=== PATIENT | female | born 1940 | race Caucasian/White ===

== ENCOUNTER → 2016-07-30 | Outpatient (CLI) | payer BC ==
[~2016-07-30] MED LIST: ATOR10TA88 PO; CLON0.5T3 PO; FEXO1TAB58 PO; IBUP-103 PO; LEVO50TA6 PO; MIRT15TA3 PO; NTRGSL/4 PO; OXYC-609 PO; PANC1200 PO; POTA10CA28 PO
--- NOTE | 2016-07-30 12:53 | DIAGNOSTIC IMAGING REPORT ---
Brain MRA HISTORY: Mental status change I63.9 Ischemic [id number] TECHNIQUE: 3-D [id number] MRA of the brain was performed without contrast. COMPARISON STUDY: None. FINDINGS: Visualized intracranial internal carotid arteries, distal vertebral arteries, and basilar artery are widely patent. 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 IMPRESSION: No significant stenosis, occlusion, or aneurysm within the [place]. Electronically signed by: Jose L Smallwood M.D. 07/30/2016 12:52 PM Dictated Date/Time: 07/30/2016 12:48 PM
--- NOTE | 2016-07-30 16:11 | ECHOCARDIOGRAM REPORT ---
*NOTICE TO RECEIVING [employer] AGENCY This information is strictly Confidential and protected under [place] law. [place] law prohibits you from making any further disclosure of this information unless further disclosure is expressly permitted by the written consent of the person to whom it pertains or is authorized by law. A general authorization for the release of medical or other information is not sufficient for this purpose. Hospital accepts no responsibility if the information is made available to any other person, INCLUDING THE PATIENT. Interpretation Summary * Name: ADELA VILLALBA Study Date: Name: ADELA VILLALBA Study Date: 07/30/2016 02:07 PM * Patient Location: C.MRI HR: 76 * : 1940 (M/d/yyyy) Gender: Female Height: 61 in * Age: 76 yrs Ethnicity: CA Weight: 108 lb * Ordering Physician: Charlotte Velez * Referring Physician: Charlotte Velez * Performed By: Baylee Rodriguez RCS * * Reason For Study: Cerebral ischemia/embolus * BSA: 1.5 m2 * -- Conclusions -- * Compared with 05/06/15 study, no significant change. * The left ventricle is normal in size. * Left ventricular systolic function is low normal. * Ejection Fraction = 50-55%. * The left ventricular wall motion is normal. * Grade I diastolic dysfunction, (abnormal relaxation pattern). * The left atrial size is normal. * Injection of contrast documented no interatrial shunt. * There is mild mitral regurgitation. * There is mild tricuspid regurgitation. * Right ventricular systolic pressure is normal. Procedure Details * A complete two-dimensional transthoracic echocardiogram was performed (2D, M-mode, Doppler and color flow Doppler). * A saline contrast injection was performed to assess for cardiac shunting. * The injection was performed through an intravenous line in the left arm. * The attending nurse who injected the saline contrast was Nicholas Lombardo RN. * A total of 20 cc of agitated saline was given. Left Ventricle * The left ventricle is normal in size. * There is normal left ventricular wall thickness. * Ejection Fraction = 50-55%. * Left ventricular systolic function is low normal. * The left ventricular wall motion is normal. Right Ventricle * The right ventricle is normal in size and function. * There is normal right ventricular wall thickness. * The right ventricular systolic function is normal. Atria * The left atrial size is normal. * Right atrial size is normal. * Injection of contrast documented no interatrial shunt. Mitral Valve * There is mild mitral annular calcification. * There is mild mitral regurgitation. Tricuspid Valve * The tricuspid valve is normal in structure and function. * There is mild tricuspid regurgitation. * Right ventricular systolic pressure is normal. Aortic Valve * The aortic valve is normal in structure and function. * The aortic valve is trileaflet. * No aortic regurgitation is present. Pulmonic Valve * The pulmonary valve is not well seen, but the Doppler examination is normal without significant regurgitation or stenosis. * There is no significant pulmonary regurgitation. Great Vessels * The aortic root is normal size. * No obvious dissection could be visualized. * The pulmonary artery is not well visualized, but is probably normal size. Pericardium/Pleural * There is no pericardial effusion. Right Ventricle * The right ventricular wall motion is normal. Great Vessels * Normal inferior vena cava diameter and respiratory variation suggests normal central venous pressure. Left Ventricular Diastolic Function * Grade I diastolic dysfunction, (abnormal relaxation pattern). MMode 2D Measurements and Calculations IVSd 0.96 cm LVIDd 4.2 cm LVIDs 3.0 cm LVPWd 0.95 cm IVS/LVPW 1.0 FS 28.9 % EDV(Teich) 79.9 ml ESV(Teich) 35.2 ml EF(Teich) 55.9 % EDV(cubed) 75.7 ml ESV(cubed) 27.2 ml EF(cubed) 64.0 % LV mass(C)d 129.8 grams LV mass(C)dI 89.3 grams/m\S\2 SV(Teich) 44.6 ml SI(Teich) 30.7 ml/m\S\2 SV(cubed) 48.4 ml SI(cubed) 33.3 ml/m\S\2 Ao root diam 2.9 cm Ao root area 6.5 cm\S\2 ACS 1.8 cm LA dimension 3.0 cm LA/Ao 1.0 LVOT diam 2.0 cm LVOT area 3.0 cm\S\2 LVAd ap4 17.5 cm\S\2 LVLd ap4 5.5 cm EDV(MOD-sp4) 49.1 ml EDV(sp4-el) 47.0 ml LVAs ap4 11.0 cm\S\2 LVLs ap4 4.8 cm ESV(MOD-sp4) 21.9 ml ESV(sp4-el) 21.4 ml EF(MOD-sp4) 55.3 % EF(sp4-el) 54.5 % LVAd ap2 16.7 cm\S\2 LVLd ap2 5.4 cm EDV(MOD-sp2) 44.7 ml EDV(sp2-el) 44.3 ml LVAs ap2 10.7 cm\S\2 LVLs ap2 5.1 cm ESV(MOD-sp2) 20.8 ml ESV(sp2-el) 19.1 ml EF(MOD-sp2) 53.5 % EF(sp2-el) 56.8 % LVLd %diff -3.19 % EDV(MOD-bp) 47.2 ml LVLs %diff 5.4 % ESV(MOD-bp) 21.5 ml EF(MOD-bp) 54.5 % SV(MOD-sp4) 27.2 ml SI(MOD-sp4) 18.7 ml/m\S\2 SV(MOD-sp2) 23.9 ml SI(MOD-sp2) 16.4 ml/m\S\2 SV(MOD-bp) 25.7 ml SI(MOD-bp) 17.7 ml/m\S\2 SV(sp4-el) 25.6 ml SI(sp4-el) 17.6 ml/m\S\2 SV(sp2-el) 25.1 ml SI(sp2-el) 17.3 ml/m\S\2 Doppler Measurements and Calculations MV E max cha 79.8 cm/sec MV A max cha 110.0 cm/sec MV E/A 0.73 MV dec time 0.24 sec Ao V2 max 136.3 cm/sec Ao max PG 7.4 mmHg Ao max PG (full) 4.2 mmHg TOMI(V,A) 2.0 cm\S\2 TOMI(V,D) 2.0 cm\S\2 LV V1 max PG 3.3 mmHg LV V1 max 90.6 cm/sec TR max cha 201.3 cm/sec
--- NOTE | 2016-08-03 10:50 | CODING QUERY MEDICAL NECESSITY ---
SUPPORTING DIAGNOSIS NEEDED A supporting diagnosis is required for the test/procedure performed on this patient in order for us to be reimbursed by the patient's insurance. Please provide a supporting diagnosis for the following test/procedure listed below next to the test name along with your signature. *If there is no additional diagnosis for this patient that would support the following test/procedure please document that below next to the test/procedure. Test(s)/Procedure(s) that require a supporting diagnosis: DOS 07/30 * MRA Head DIAGNOSIS: Provider Signature: Date: Thank you Madison [facility] Health Information Management Once completed, please kindly fax back to [phone] For questions please call [phone]
== END | disposition home or self-care (01) ==
LOC: C.MRI 12:17
PROVIDERS: ATTEND Psychiatry & Neurology Neurology
DX: I63.9 Cerebral infarction, unspecified (principal)

== ENCOUNTER → 2017-04-03 | Outpatient (CLI) | payer BC ==
[2017-04-03 17:21] LABS: BASO % 0.6 %; BASO ABS # 0.03 K/uL (0-0.2); COMPLETE YES; HEMATOCRIT 35.2 % (37-47); IG% 0.2 %; LYMPH % 28.8 %; LYMPH ABS # 1.45 K/uL (1.2-3.4); MEAN CELL VOLUME 92.6 fL (80-100); MEAN CORPUSCULAR HEMOGLOBIN 30.5 pg (25-34); MEAN PLATELET VOLUME 10.7 fL (7.4-10.4); MONO % 7.4 %; PLATELET COUNT 275 K/uL (130-400); WHITE BLOOD COUNT 5.03 K/uL (4.8-10.8)
[2017-04-03 17:36] LABS: ALB/GLOB RATIO 0.8 (0.9-2); ALKALINE PHOSPHATASE 66 U/L (45-117); ALT/SGPT 23 U/L (12-78); BLOOD UREA NITROGEN 19 mg/dl (7-18); BUN/CREATININE RATIO 19.2 (10-20); CALCIUM 9.1 mg/dl (8.5-10.1); CARBON DIOXIDE 25 mmol/L (21-32); CHLORIDE 99 mmol/L (98-107); CHOLESTEROL 162 mg/dl (0-200); CHOLESTEROL/HDL RATIO 2.8; GLUCOSE 101 mg/dl (70-99); HDL CHOLESTEROL 58 mg/dl; LDL CHOLESTEROL CALCULATED 79 mg/dl; POTASSIUM 4.5 mmol/L (3.5-5.1); SODIUM 132 mmol/L (136-145); TRIGLYCERIDES 126 mg/dl (0-150); URIC ACID 4.9 mg/dl (2.6-7.2); VERY LOW DENSITY LIPOPROT CALC 25 mg/dl
[2017-04-03 17:47] LABS: AST/SGOT 18 U/L (15-37); TOTAL IRON BINDING CAPACITY 281 mcg/dl (250-450)
== END | disposition home or self-care (01) ==
LOC: C.LABBC 14:18
PROVIDERS: ATTEND Family Medicine
DX: R73.9 Hyperglycemia, unspecified (principal); E55.9 Vitamin D deficiency, unspecified; D51.9 Vitamin B12 deficiency anemia, unspecified; E78.9 Disorder of lipoprotein metabolism, unspecified

== ENCOUNTER → 2017-06-19 | Outpatient (CLI) | payer BC ==
[~2017-06-19] MED LIST changes: +ATOR10TA82 PO; -ATOR10TA88 PO
--- NOTE | 2017-06-20 14:33 | MAMMOGRAPHY REPORT ---
BILATERAL DIGITAL SCREENING MAMMOGRAM TOMOSYNTHESIS WITH CAD: 06/19/2017 CLINICAL HISTORY: Routine screening. TECHNIQUE: Breast tomosynthesis in addition to standard 2D mammography was performed. Current study was also evaluated with a Computer Aided Detection (CAD) system. COMPARISON: Comparison is made to exams dated: 06/28/2016 ultrasound, 06/28/2016 mammogram, 06/18/20 16 mammogram, 06/15/2015 mammogram, 06/14/2014 mammogram, and 06/12/2013 mammogram - [facility]. BREAST COMPOSITION: The tissue of both breasts is heterogeneously dense, which may obscure small mas ses. FINDINGS: The parenchymal pattern is unchanged. No developing mass, architectural distortion or clus ter of suspicious microcalcifications is seen in either breast. IMPRESSION: ACR BI-RADS CATEGORY 2: BENIGN There is no mammographic evidence of malignancy. A 1 year screening mammogram is recommended. The pa tient will receive written notification of the results. Approximately 10% of breast cancers are not detected with mammography. A negative mammographic report should not delay biopsy if a clinically suggestive mass is present. Bernadette Sadler M.D. ay/:06/19/2017 14:27:42 Construction Scheduler: Lorrie MORRIS(R)(M), [facility] letter sent: Normal 1/2 BI-RADS Code: ACR BI-RADS Category 2: Benign
== END | disposition home or self-care (01) ==
LOC: C.MAMM 13:33
PROVIDERS: ATTEND Obstetrics & Gynecology
DX: Z12.31 Encounter for screening mammogram for malignant neoplasm of breast (principal)

== ENCOUNTER → 2017-09-20 | Outpatient (CLI) | payer BC | END | disposition home or self-care (01) | LOC: C.PAPS 18:24 | PROVIDERS: ATTEND Obstetrics & Gynecology | DX: Z01.419 Encounter for gynecological examination (general) (routine) without abnormal findings (principal) ==

== ENCOUNTER → 2018-01-17 | Outpatient (CLI) | payer BC ==
[~2018-01-17] MED LIST changes: -CLON0.5T3 PO; +KLN/5 PO
== END | disposition home or self-care (01) ==
LOC: C.CPL 10:41
PROVIDERS: ATTEND Family Medicine
DX: R07.9 Chest pain, unspecified (principal)

== ENCOUNTER 2023-09-13 21:21 | Inpatient (IN) ==
[2023-09-13 22:13] LABS: Alanine Aminotransferase 174 U/L (7-52); Albumin Globulin Ratio 0.9 (0.9-2); Albumin Level 3.5 gm/dl (3.4-5.0); Alkaline Phosphatase 255 U/L (34-104); Anion Gap 9 (3-11); Aspartate Aminotransferase 82 U/L (13-39); BUN Creatinine Ratio 36.7 (10-20); Bilirubin,Total 0.3 mg/dl (0.2-1.0); Blood Urea Nitrogen 40 mg/dl (6-23); Calcium 8.4 mg/dl (8.6-10.3); Carbon Dioxide 25 mmol/L (21-32); Chloride 97 mmol/L (98-107); Est GFR (African American) 55.1 ml/min; Est GFR (Non-African American) 47.6 ml/min; Glucose 116 mg/dl (70-99(Fasting)); Lipase 12 U/L (11-82); Potassium 4.7 mmol/L (3.5-5.1); Sodium 131 mmol/L (136-145); Total Protein 7.5 gm/dl (6.0-8.3)
[2023-09-13 22:19] LABS: Basophils # (auto) 0.03 K/uL (0.00-0.20); Basophils % (auto) 0.3 %; Eosinophils # (auto) 0.09 K/uL (0.00-0.50); Eosinophils % (auto) 0.9 %; Hematocrit (blood only) 28.6 % (37.0-47.0); Hemoglobin 9.7 g/dl (12.0-16.0); Immature Granulocytes # (auto) 0.21 K/uL (0.01-0.20); Immature Granulocytes % (auto) 2.1 %; Lymphocytes # (auto) 1.53 K/uL (1.20-3.40); Mean Corpuscular Hemoglobin 30.7 pg (25.0-34.0); Mean Corpuscular Hgb Conc 33.9 g/dL (32.0-36.0); Mean Corpuscular Volume 90.5 fL (80.0-100.0); Mean Platelet Volume 10.3 fL (9.4-12.4); Monocytes # (auto) 0.82 K/uL (0.11-0.59); Neutrophils # (auto) 7.52 K/uL (1.40-6.50); Neutrophils % (auto) 73.7 %; Nucleated RBC # (auto) 0.06 K/uL (0.00-0.12); Nucleated RBC % (auto) 0.6 %; Platelet Count 464 K/uL (130-400); RDW Coefficient of Variation 14.1 % (11.5-14.5); RDW Standard Deviation 45.7 fL (36.4-46.3); Red Blood Count 3.16 M/uL (4.20-5.40)
--- NOTE | 2023-09-14 00:10 | Emergency Department Note ---
Impression & Plan ST elevation (STEMI) myocardial infarction, Abdominal pain, RUQ Admit to the [facility] Hospitalist ED Provider Note NAME: ADELA VILLALBA AGE: 83 SEX: Female INFORMANT: Patient ED PROVIDER(S): Yari Thao DO CHIEF COMPLAINT: Shortness of breath PLAN: Disposition: Admit to the [facility] MEDICAL DECISION MAKING: This is an 83-year-old female patient from [facility] who presents to the emergency department for further evaluation of possible cholecystitis. Patient was seen here around 2:00 this afternoon where she underwent CT scan of the abdomen/pelvis which showed evidence of mild pericholecystic edema. Over the past week, the patient has been increasingly short of breath and had decreased energy. They do laboratory studies at her assisted living facility and found that her LFTs were elevated. They examined her and found that she had pain in her right upper quadrant of her abdomen. They sent her here for CT scan. [facility], EKG was performed and found an acute inferior STEMI. The patient denies any chest pain. She does describe shortness of breath and mild epigastric and right upper quadrant discomfort. Laboratory studies reveal no leukocytosis. Hemoglobin is 9.7. BUN of 40 creatinine of 1.0. Troponin of 2094. AST of 82, ALT of 174, and alk phos of 255. Total bilirubin was normal. The patient denied having any chest pain at all. Her only complaint was shortness of breath and decreased energy. Patient does have evidence of an inferior STEMI on EKG and significantly elevated troponin greater than 2000. Once this is addressed, the patient will require additional evaluation of her gallbladder. Care/management discussed with: The patient's son, the patient's niece, supply manager, Dr. Scott-cardiology, and Dr. Sanchez Triage Nursing notes: Reviewed and agree with them. Vital Signs: reviewed and remarkable for mild hypertension Additional History obtained from: The patient's niece is at the bedside and the patient's son who I spoke with on the phone Differential Diagnosis: Acute cholecystitis, STEMI, NSTEMI, ACS Diagnostics, independently interpreted by me: ECG: Normal sinus rhythm at a rate of [address] segment elevation in leads II, III, and aVF with reciprocal changes in leads I and aVL consistent with a STEMI. Cardiac Monitoring: Normal sinus rhythm at 85 Imaging studies: Portable chest x-ray: As per my independent interpretation- cardiomegaly with pulmonary vascular congestion HPI: 83 year old Female arrives for evaluation of shortness of breath. Over the past week, the patient has been increasingly short of breath and had decreased energy. She has significant exercise intolerance. Staff at [facility] noted that the patient was pale and obtain some laboratory studies which revealed elevated LFTs. On physical exam, they felt she had right upper quadrant abdominal pain and sent for CT scan of the abdomen/pelvis. That was performed here at the hospital earlier today and showed mild pericholecystic edema. She was sent back here this evening for further evaluation of her gallbladder. PAST MEDICAL HISTORY: See Below, PAST SURGICAL HISTORY: See Below, SOCIAL HISTORY: See Below, HOME MEDICATIONS: See list ALLERGIES: See list VITALS: See Below PHYSICAL EXAMINATION: HEENT: Head - normocephalic and atraumatic. Pupils are equal, round, and reactive to light. Extraocular eye muscles are intact, and sclera are anicteric. Nose - moist nasal mucosa without discharge. Mouth - moist buccal mucosa. Oropharynx is nonerythematous and there is no tonsillar exudate or edema noted. Neck: Supple; no JVD, nuchal rigidity, cervical lymphadenopathy. Heart: Regular rate and rhythm. There is a normal S1 and S2 with no murmurs, clicks, or gallops appreciated. Lungs: Clear to auscultation bilaterally with no wheezes, rales, or rhonchi. Abdomen: Soft, completely nontender, nondistended, with good bowel sounds. There are no palpable pulsatile masses or hepatosplenomegaly. There is no guarding, rigidity, or rebound noted. Extremities: No evidence of cyanosis, clubbing, or edema. There are easily palpable peripheral pulses. Skin: warm and dry with good turgor and no rashes. Emergency department course: Protocols were performed on this patient upon her arrival. The patient was evaluated in room B-12-A. A complete history and physical was performed. A twelve-lead EKG was obtained and compared to a previous EKG. it showed evidence of ST segment elevation CT. I reevaluated the patient and once again asked if she had any chest pain and she denied. An order was placed for continuous cardiac monitoring. The patient was in a normal sinus rhythm at a rate of 85. A portable chest x-ray was performed. I discussed the case at length with the patient's niece who is at the bedside as well as the patient's son by phone. I contacted Dr. Scott from cardiology to discuss the case. He felt the patient could be admitted medically with cardiology consultation unless she were to develop chest pain or if her situation were to decline. Past Med/Surg History Medical History (Updated 09/14/23 @ 08:46 by Yari Thao DO) Hypothyroidism (acquired) Depression with anxiety Hyperlipidemia Hypertension History of melanoma (~2004) Allergic rhinitis Arthritis Ischemic stroke (~05/2016) Surgical History S/P fine needle aspiration (~07/2004) thyroid H/O squamous cell carcinoma excision H/O melanoma excision History of spinal surgery discectomy lumbar, spurs/cysts L4-L5 History of arthroscopy of knee (~03/2005) meniscal tear History of surgical removal of lesion History of dilation and curettage History of hemorrhoidectomy History of tonsillectomy Family History Family/Other Skin cancer Hypothyroidism Rheumatoid arthritis Sister Skin cancer Celiac disease Father Heart disease Osteoporosis Stroke syndrome Thyroid disorder Myocardial infarction Mother COPD (chronic obstructive pulmonary disease) Stroke Sister , age 58 Lung cancer Denies family history of Ovarian cancer Prostate cancer Diabetes Breast cancer Colorectal cancer Social History Smoking Status: Never smoker Do You Dip or Chew Tobacco: No; Hx Alcohol Use: No Hx Substance Use: No Preferred Language: Bel[place]ian Visual Impairment: No Limitations Hearing Ability: Normal Equipment Engineer Required: No Beliefs That Will Affect Care: None marital status: Current Living Situation: Spouse current occupational status: retired How many Children do You have: 2 Feels Safe at Home: Yes Childhood Exposure to Second-Hand Smoke: Yes Diet: gluten free and other Diet Comment: [place] caffeine: Yes (1 glass of tea in the morning ) during the past year weight has: remained stable Dental Care, Regularly: Yes Physical Activity Frequency: 3-4 Times per Week Physical Activity Frequency Comment: walks Seatbelt Use: always Sunscreen Use: Yes Assistive Devices: None Allergies Allergies Allergy/AdvReac Type Severity Reaction Status Date / Time codeine Allergy Severe THROAT Verified 04/13/22 15:01 SWELLING gluten Allergy Intermediate WEIGHT LOSS Verified 04/13/22 15:01 Penicillins Allergy Intermediate RASH Verified 04/13/22 15:01 Sulfa (Sulfonamide Allergy Mild GI SYMPTOMS Verified 04/13/22 15:01 Antibiotics) pregabalin [From Lyrica] Allergy Unverified 05/08/22 09:42 timolol Allergy Unverified 05/08/22 09:42 lactose AdvReac Unknown GI SYMPTOMS Verified 04/13/22 15:01 Home Meds Home Medications Medication Instructions Recorded Confirmed aspirin 81 mg tablet,delayed 81 mg PO DAILY 09/14/23 09/14/23 release clonazepam 0.5 mg tablet 0.5 mg PO BID 09/14/23 09/14/23 Previous Rx's Medication Instructions Recorded levothyroxine 50 mcg tablet 50 mcg PO DAILY #90 tabs 05/17/22 mirtazapine 15 mg tablet 15 mg PO QPM #90 tabs 05/17/22 oxycodone 5 mg tablet 5 mg PO TID PRN pain #90 tabs 09/21/22 Results & Data (ED) Vital Signs Vital Signs - 24 hr 09/13/23 21:27 09/13/23 23:41 09/14/23 00:13 Temperature 36.8 C Temperature Source Temporal Artery Scan Pulse Rate 94 H 90 Pulse Rate [Apical] 85 Respiratory Rate 17 16 Blood Pressure 130/77 Blood Pressure [Right Arm] 157/80 H Blood Pressure Mean 94 Blood Pressure Mean [Right Arm] 105 Pulse Oximetry 91 93 Oxygen Delivery Method Room Air Sepsis Recent Fever Within 48 Hours No Sepsis New/Unexplained Change in Mental Status No Sepsis Action Taken by Nursing No Action Required 09/14/23 01:28 09/14/23 02:00 Temperature Temperature Source Pulse Rate Pulse Rate [Apical] 89 93 H Respiratory Rate 20 18 Blood Pressure Blood Pressure [Right Arm] 130/81 153/83 H Blood Pressure Mean Blood Pressure Mean [Right Arm] 97 106 Pulse Oximetry 95 92 Oxygen Delivery Method Room Air Room Air Sepsis Recent Fever Within 48 Hours Sepsis New/Unexplained Change in Mental Status Sepsis Action Taken by Nursing Laboratory Data 09/14/23 03:54 09/14/23 04:01 Lab Results 09/13/23 Range/Units 21:42 WBC 10.20 (4.8-10.8) K/ul RBC 3.16 L (4.20-5.40) M/uL Hgb 9.7 L (12.0-16.0) g/dl Hct 28.6 L (37.0-47.0) % MCV 90.5 (80.0-100.0) fL MCH 30.7 (25.0-34.0) pg MCHC 33.9 (32.0-36.0) g/dL RDW Std Deviation 45.7 (36.4-46.3) fL RDW Coeff of Lauren 14.1 (11.5-14.5) % Plt Count 464 H (130-400) K/uL MPV 10.3 (9.4-12.4) fL Immature Gran % (Auto) 2.1 % Neut % (Auto) 73.7 % Lymph % (Auto) 15.0 % [place] % (Auto) 8.0 % Eos % (Auto) 0.9 % Baso % (Auto) 0.3 % Neut # (Auto) 7.52 H (1.40-6.50) K/uL Lymph # (Auto) 1.53 (1.20-3.40) K/uL [place] # (Auto) 0.82 H (0.11-0.59) K/uL Eos # (Auto) 0.09 (0.00-0.50) K/uL Baso # (Auto) 0.03 (0.00-0.20) K/uL Immature Gran # (Auto) 0.21 H (0.01-0.20) K/uL Absolute Nucleated RBC 0.06 (0.00-0.12) K/uL Nucleated RBC % (auto) 0.6 % APTT 28 (21-31) Seconds PTT Ratio 1.0 Sodium 131 L (136-145) mmol/L Potassium 4.7 (3.5-5.1) mmol/L Chloride 97 L (98-107) mmol/L Carbon Dioxide 25 (21-32) mmol/L Anion Gap 9 (3-11) BUN 40 H (6-23) mg/dl Creatinine 1.09 (0.6-1.2) mg/dl Est Cr Clr Drug Dosing Not Reportable Est GFR ( Amer) 55.1 ml/min Est GFR (Non-Af Amer) 47.6 ml/min BUN/Creatinine Ratio 36.7 H (10-20) Glucose 116 H (70-99(Fasting)) mg/dl Calcium 8.4 L (8.6-10.3) mg/dl Total Bilirubin 0.3 (0.2-1.0) mg/dl AST 82 H (13-39) U/L ALT 174 H (7-52) U/L Alkaline Phosphatase 255 H (34-104) U/L Troponin I High Sens 2094.4 H* (0-14) pg/ml Total Protein 7.5 (6.0-8.3) gm/dl Albumin 3.5 (3.4-5.0) gm/dl Globulin 4.0 (2.5-4.0) gm/dl Albumin/Globulin Ratio 0.9 (0.9-2) Lipase 12 (11-82) U/L Administered Medications Aspirin (Aspirin 81 Mg Ectab) 81 mg PO DAILY [facility] Stop: 10/14/23 08:59 Last Admin: 09/14/23 08:29 Dose: 81 mg Documented By: BENJAMIN Clonazepam (Clonazepam 0.5 Mg Tab) 0.5 mg PO BID [facility] Stop: 10/14/23 08:59 Last Admin: 09/14/23 08:36 Dose: 0.5 mg Documented By: BENJAMIN Piperacillin Sod/Tazobactam (Sod 4.5 gm/ Dextrose) 100 mls @ 25 mls/hr IV Q8H [facility]; Protocol Stop: 09/24/23 07:59 Last Admin: 09/14/23 08:28 Dose: 25 mls/hr Documented By: BENJAMIN Heparin Sodium/Dextrose (Heparin Sodium/Dextrose) 25,000 units in 500 mls @ 21 mls/hr IV .[id number] [facility]; Protocol Stop: 10/14/23 03:44 Last Titration: 09/14/23 07:14 Dose: 1,050 units/hr, 21 mls/hr Documented By: BENJAMIN Co-signed By: LALA Admin: 09/14/23 03:50 Dose: 1,050 units/hr, 21 mls/hr Documented By: EMELIA Co-signed By: NORA Levothyroxine Sodium (Levothyroxine Sodium 50 Mcg Tablet) 50 mcg PO DAILYBB [facility] Stop: 10/14/23 06:29 Last Admin: 09/14/23 06:45 Dose: 50 mcg Documented By: DM Discontinued Medications Aspirin (Aspirin 81 Mg Chew) 324 mg PO NOW STA Stop: 09/14/23 02:23 Last Admin: 09/14/23 02:59 Dose: 324 mg Documented By: TED Heparin Sodium (Porcine) (Heparin Sod (Porcine) 1000 Unit/Ml) 5,000 units IV NOW ONE Stop: 09/14/23 02:39 Last Admin: 09/14/23 03:51 Dose: 5,000 units Documented By: EMELIA Co-signed By: NORA Heparin Sodium/Dextrose (Heparin Iv Adult Wt-Based Standard W/ Initial Bolus Protocol) 1 each IV Q15M [facility]; Protocol Stop: 09/14/23 04:00 Last Admin: 09/14/23 02:52 Dose: Not Given Documented By: TED Heparin Sodium/Dextrose (Heparin Sodium/Dextrose) 25,000 units in 500 mls @ 21 mls/hr IV .[id number] [facility]; Protocol Stop: 10/14/23 02:44 Last Admin: 09/14/23 04:15 Dose: Not Given Documented By: EMELIA Piperacillin Sod/Tazobactam Sod (Zosyn) 4.5 gm in 100 mls @ 200 mls/hr IV NOW ONE; Protocol Stop: 09/14/23 03:14 Last Infusion: 09/14/23 04:16 Dose: Infused Documented By: Admin: 09/14/23 02:59 Dose: 200 mls/hr Documented By: TED Imaging Data Radiologist's Impression: Chest X-Ray 09/14/23 00:10 XR chest 1V portable CLINICAL HISTORY: Shortness of breath. COMPARISON STUDY: Chest radiograph May 05, 2015. FINDINGS: There is no pneumothorax. Small left pleural effusion is noted. There are bibasilar opacities, greater on the left. There is moderate cardiomegaly with pulmonary vascular congestion. IMPRESSION: 1. Cardiomegaly with pulmonary vascular congestion. 2. Small left pleural effusion. Bibasilar opacities which favor atelectasis over an infectious process. ACT 112: Negative or not required by law. Electronically signed by: Scott De Anda M.D. 09/14/2023 8:28 AM Liver Ultrasound 09/14/23 02:25 US liver CLINICAL HISTORY: Right upper quadrant abdominal pain. Evaluate for acute cholecystitis. COMPARISON STUDY: CT of the abdomen and pelvis September 13, 2023. FINDINGS: Hepatic echogenicity is increased. There is a 9 mm lateral segment hepatic cyst. This exam is compromised by suboptimal penetration. Pancreas is unremarkable. There is no biliary ductal dilatation. No gallstones are present. There is mild gallbladder wall thickening. No sonographic Rico sign was elicited. There is no right hydronephrosis. Trace right pleural effusion is incidentally noted. IMPRESSION: 1. No gallstones. No sonographic Rico sign. Mild gallbladder wall thickening, a nonspecific finding. No convincing evidence for acute cholecystitis. 2. Hepatic steatosis. 3. No biliary ductal dilatation. ACT 112: Negative or not required by law. Electronically signed by: Scott De Anda M.D. 09/14/2023 8:37 AM Discharge Plan Visit Data Chief Complaint: Referred by Doctor Stated Complaint: Cholecystitis, Elevated Liver Enzymes ED Provider: Yari Thao Discharge Problem: ST elevation (STEMI) myocardial infarction, Abdominal pain, RUQ Patient Disposition: Admitted As Inpatient Discharge Instructions Interventions: ED Discharge Assessment Last Done: 09/14/23 03:10
[2023-09-14 01:15] LABS: Troponin I High Sensitivity 2094.4 pg/ml (0-14)
--- NOTE | 2023-09-14 02:36 | History & Physical Report ---
Date of Service September 14, 2023 Assessment & Plan (1) STEMI (ST elevation myocardial infarction): Plan: EKG suggestive of inferior STEMI, elevation of troponin as well to 2093 --> 2182. Patient does not now nor ever endorse chest pain, nausea, dizziness. Uncertain if she is a reliable historian - some history of vascular dementia. She does admit to some shortness of breath. -Admit to PCU -Trend troponin to peak -Check 2D echo -ASA 324mg given in ER, Continue ASA 81mg po daily -Heparin gtt -Cardiology consultation appreciated (2) Acute cholecystitis: Plan: Patient noted to have acute cholecystitis on CT imaging obtained today. Presently afebrile, HD stable. No leukocytosis. She does have elevation of AST=72, JKE=945 and SB=900. Bilirubin and Lipase are within normal limits. -Obtain RUQUS -Repeat LFTs -Antibiotic coverage with Zosyn -Appreciate General Surgery consultation - understandably will need to sort out acute cardiac issues before pursuing surgical intervention (3) Hypothyroidism (acquired): Plan: Chronic. TSH WNL at 1.65 -Continue Synthroid 50mcg po daily History of Present Illness Chief Complaint: HUNTER Primary Care Provider: Duke Zelaya MD Carmela Pat is an 83yo female with history of prior CVA< HTN, HLP, Hypothyroidism presenting from [facility] with imbalance, ambulatory dysfunction and dyspnea. Patient's niece, Pari, is at bedside and provides history. Patient is fairly functional at baseline - able to ambulate without assistance. Several days ago she was noted to have decreased appetite and oral intake. Also with decreased ambulatory dysfunction - requiring assistance of staff and walker to ambulate as well as HUNTER. She had blood work performed earlier today and was found to have abnormal LFTs so she was sent to [facility] to get a CT of the abdomen. Her CT of the abdomen suggestive of acute cholecystitis therefore she was recommended admission for IV antibiotics. During her initial workup in the ER her EKG showed an acute inferior STEMI. Troponin found to be elevated at 2093.4. Patient denies chest pain, cough, SOB, palpitations, dizziness. Denies fever, chills, nausea, vomiting. She does have some abdominal pain but points to the lower abdomen more than the RUQ. Case discussed [facility] Cardiology - no laboratory animal facility supervisor immediately Sylvester Pat (son and POA) [phone] Allergies Allergy/AdvReac Type Severity Reaction Status Date / Time codeine Allergy Severe THROAT Verified 04/13/22 15:01 SWELLING gluten Allergy Intermediate WEIGHT LOSS Verified 04/13/22 15:01 Penicillins Allergy Intermediate RASH Verified 04/13/22 15:01 Sulfa (Sulfonamide Allergy Mild GI SYMPTOMS Verified 04/13/22 15:01 Antibiotics) pregabalin [From Lyrica] Allergy Unverified 05/08/22 09:42 timolol Allergy Unverified 05/08/22 09:42 lactose AdvReac Unknown GI SYMPTOMS Verified 04/13/22 15:01 Home Medications Medication Instructions Recorded Confirmed Type levothyroxine 50 mcg tablet 50 mcg PO DAILY #90 tabs 05/17/22 09/14/23 Rx mirtazapine 15 mg tablet 15 mg PO QPM #90 tabs 05/17/22 09/14/23 Rx oxycodone 5 mg tablet 5 mg PO TID PRN pain #90 tabs 09/21/22 09/14/23 Rx aspirin 81 mg tablet,delayed 81 mg PO DAILY 09/14/23 09/14/23 History release clonazepam 0.5 mg tablet 0.5 mg PO BID 09/14/23 09/14/23 History Past Med/Surg History Medical History (Updated 09/14/23 @ 06:01 by Santa Sanchez DO) Hypothyroidism (acquired) Depression with anxiety Hyperlipidemia Hypertension History of melanoma (~2004) Allergic rhinitis Arthritis Ischemic stroke (~05/2016) Surgical History S/P fine needle aspiration (~07/2004) thyroid H/O squamous cell carcinoma excision H/O melanoma excision History of spinal surgery discectomy lumbar, spurs/cysts L4-L5 History of arthroscopy of knee (~03/2005) meniscal tear History of surgical removal of lesion History of dilation and curettage History of hemorrhoidectomy History of tonsillectomy Family History Family/Other Skin cancer Hypothyroidism Rheumatoid arthritis Sister Skin cancer Celiac disease Father Heart disease Osteoporosis Stroke syndrome Thyroid disorder Myocardial infarction Mother COPD (chronic obstructive pulmonary disease) Stroke Sister , age 58 Lung cancer Denies family history of Ovarian cancer Prostate cancer Diabetes Breast cancer Colorectal cancer Social History Smoking Status: Never smoker Do You Dip or Chew Tobacco: No; Hx Alcohol Use: No Hx Substance Use: No Preferred Language: Kyrgyz Visual Impairment: No Limitations Hearing Ability: Normal 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 Beliefs That Will Affect Care: None marital status: Current Living Situation: Spouse current occupational status: retired How many Children do You have: 2 Feels Safe at Home: Yes Childhood Exposure to Second-Hand Smoke: Yes Diet: gluten free and other Diet Comment: Mediteranean caffeine: Yes (1 glass of tea in the morning ) during the past year weight has: remained stable Dental Care, Regularly: Yes Physical Activity Frequency: 3-4 Times per Week Physical Activity Frequency Comment: walks Seatbelt Use: always Sunscreen Use: Yes Assistive Devices: None Review of Systems Review of Systems: All systems reviewed & are unremarkable except as noted in HPI & below Physical Exam Physical Exam: General: patient resting comfortably, NAD, non-toxic in appearance, AA&O x 4 Skin: warm, dry, intact, no rashes or lesions HEENT: NC/AT, PERRL, EOMI, anicteric sclera, conjunctiva without injection, external ear normal to inspection and nontender, nares patent, moist mucus membranes, dentition intact, no oropharyngeal lesions, neck supple, trachea midline, no LAD, no thyromegaly, no JVD Heart: +S1/S2, regular, no m/r/g Lungs: equal air entry bilaterally, no rales/rhonchi/wheezes Abd: +BS, soft, ND, tender in lower abdomen without rebound or guarding. Some RUQ tenderness as well Ext: warm, 2+ pulses in UE/LE bilaterally, no clubbing/cyanosis or edema Neuro: nonfocal, patient AA&O x 4, speech intact, no facial droop, moving all extremities on command with equal strength 5/5 Results & Data Results & Data Vital Signs (Past 12 Hours) Vital Signs Temp Pulse Pulse Resp BP BP Pulse Ox 09/14/23 01:28 89 20 130/81 95 09/14/23 00:13 90 09/13/23 23:41 85 16 157/80 H 93 09/13/23 21:27 36.8 C 94 H 17 130/77 91 O2 Del Method 09/14/23 01:28 Room Air 09/14/23 00:13 09/13/23 23:41 Room Air 09/13/23 21:27 Laboratory Results Laboratory Results WBC 10.06 K/ul (4.8-10.8) 09/14/23 03:54 RBC 3.06 M/uL (4.20-5.40) L 09/14/23 03:54 Hgb 9.4 g/dl (12.0-16.0) L 09/14/23 03:54 Hct 28.5 % (37.0-47.0) L 09/14/23 03:54 MCV 93.1 fL (80.0-100.0) 09/14/23 03:54 MCH 30.7 pg (25.0-34.0) 09/14/23 03:54 MCHC 33.0 g/dL (32.0-36.0) 09/14/23 03:54 RDW Std Deviation 46.9 fL (36.4-46.3) H 09/14/23 03:54 RDW Coeff of Lauren 14.0 % (11.5-14.5) 09/14/23 03:54 Plt Count 467 K/uL (130-400) H 09/14/23 03:54 MPV 10.6 fL (9.4-12.4) 09/14/23 03:54 Immature Gran % (Auto) 2.1 % 09/13/23 21:42 Neut % (Auto) 73.7 % 09/13/23 21:42 Lymph % (Auto) 15.0 % 09/13/23 21:42 Bladen % (Auto) 8.0 % 09/13/23 21:42 Eos % (Auto) 0.9 % 09/13/23 21:42 Baso % (Auto) 0.3 % 09/13/23 21:42 Neut # (Auto) 7.52 K/uL (1.40-6.50) H 09/13/23 21:42 Lymph # (Auto) 1.53 K/uL (1.20-3.40) 09/13/23 21:42 Bladen # (Auto) 0.82 K/uL (0.11-0.59) H 09/13/23 21:42 Eos # (Auto) 0.09 K/uL (0.00-0.50) 09/13/23 21:42 Baso # (Auto) 0.03 K/uL (0.00-0.20) 09/13/23 21:42 Immature Gran # (Auto) 0.21 K/uL (0.01-0.20) H 09/13/23 21:42 Absolute Nucleated RBC 0.03 K/uL (0.00-0.12) 09/14/23 03:54 Nucleated RBC % (auto) 0.3 % 09/14/23 03:54 APTT 28 Seconds (21-31) 09/13/23 21:42 PTT Ratio 1.0 09/13/23 21:42 Sodium 131 mmol/L (136-145) L 09/14/23 04:01 Potassium 4.6 mmol/L (3.5-5.1) 09/14/23 04:01 Chloride 98 mmol/L (98-107) 09/14/23 04:01 Carbon Dioxide 22 mmol/L (21-32) 09/14/23 04:01 Anion Gap 11 (3-11) 09/14/23 04:01 BUN 36 mg/dl (6-23) H 09/14/23 04:01 Creatinine 1.06 mg/dl (0.6-1.2) 09/14/23 04:01 Est Cr Clr Drug Dosing 38.3 ml/min 09/14/23 04:01 Est GFR ( Amer) 57.0 ml/min 09/14/23 04:01 Est GFR (Non-Af Amer) 49.2 ml/min 09/14/23 04:01 BUN/Creatinine Ratio 34.0 (10-20) H 09/14/23 04:01 Glucose 114 mg/dl (70-99(Fasting)) H 09/14/23 04:01 Calcium 8.3 mg/dl (8.6-10.3) L 09/14/23 04:01 Magnesium 2.3 mg/dl (1.7-2.4) 09/14/23 04:01 Total Bilirubin 0.3 mg/dl (0.2-1.0) 09/14/23 04:01 Direct Bilirubin 0.1 mg/dl (0-0.2) 09/14/23 04:01 AST 72 U/L (13-39) H 09/14/23 04:01 ALT 155 U/L (7-52) H 09/14/23 04:01 Alkaline Phosphatase 230 U/L (34-104) H 09/14/23 04:01 Troponin I High Sens 2183.6 pg/ml (0-14) H* 09/14/23 04:01 Total Protein 6.9 gm/dl (6.0-8.3) 09/14/23 04:01 Albumin 3.3 gm/dl (3.4-5.0) L 09/14/23 04:01 Globulin 4.0 gm/dl (2.5-4.0) 09/13/23 21:42 Albumin/Globulin Ratio 0.9 (0.9-2) 09/13/23 21:42 Lipase 12 U/L (11-82) 09/13/23 21:42 Diagnostic Findings [place], [place] [phone] CT Scan Report Patient: ACRMELA PAT Admit Date: 09/13/23 MR#: [id number] Address1: [id number] Acct ID:[id number] Address2: [facility] Date: 1940 [facility] Zip: [place] [address] Age: 83 Location: CT Sex: F Room/Bed: Att Phy: Brianda Ramirez CRNP Diagnosis: RUQ ABDOMINAL PAIN Michelle Phy: Duke Zelaya MD Service Date: 09/13/23 [facility] Phy: Interpreting Phy: Heriberto Zelaya MDAdmit Phy: Ordering Phy: Brianda Ramirez CRNP cc: ~ ABDOMEN AND PELVIS CT WITH IV AND ORAL CONTRAST CT DOSE: 682.31 mGy.cm HISTORY: RUQ ABDOMINAL PAIN TECHNIQUE: Multiaxial CT images of the abdomen and pelvis were performed following the use of intravenous and oral contrast. A dose lowering technique was utilized adhering to the principles of ALARA. COMPARISON STUDY: Chest CTA 02/26/2013. FINDINGS: Trace right and small left pleural effusions. This has improved. The heart is enlarged. No pericardial effusion identified. Left basilar linear densities favor subsegmental atelectasis from the pleural effusion. A pneumonia would be difficult to exclude by imaging. There are suboptimal evaluation of the abdomen and pelvis due to the motion artifact. No pneumoperitoneum. No pneumatosis. Levoscoliosis and degenerative changes seen within the lumbar spine. No acute fractures identified. Tiny fat-containing umbilical hernia. Hepatic steatosis. There are 2 small hypodense lesions within the left hepatic lobe the largest measuring 9 mm. These are technically too small to characterize but favor cysts. There may be mild pericholecystic edema. However, this could be due to the motion artifact. No definite gallbladder wall thickening. The main portal vein is patent. The spleen, adrenal glands, and pancreas appear unremarkable. No retroperitoneal lymphadenopathy. Moderate calcified plaque within the normal caliber abdominal aorta. A few scattered subcentimeter hypodense lesions within the kidneys. These are also technically too small to characterize but statistically represent cysts. No hydronephrosis. No retroperitoneal or pelvic lymphadenopathy. No pelvic free fluid. The bladder, uterus, bilateral adnexa are unremarkable. No definite bowel wall thickening or obstruction. Normal appendix. IMPRESSION: 1. Motion artifact results in suboptimal evaluation of the abdomen and pelvis. 2. No bowel wall thickening or obstruction. 2. Normal appendix. 3. Possible mild pericholecystic edema. However, this could be due to the motion artifact. Consider follow-up right upper quadrant ultrasound to exclude the possibility of an early acute cholecystitis given the history of right upper quadrant pain . 4. Trace right and small left pleural effusions. This is improved. 5. Cardiomegaly. 6. Additional findings as described above. ACT 112: Negative or not required by law. Electronically signed by: Heriberto Zelaya M.D. 09/13/2023 5:40 PM Dictated: 09/13/23 173 Transcribed: 09/13/23 173 ECG Additional Comments: EKG with NSR at 86bpm, normal axis, VW=641, QRS=84, UMf=787, ST elevation in II, III and aVF with reciprocal changes in I and aVL PG Care Time/CCT Total # of Minutes Spent Total Time Spent with Patient: Total time spent is greater than 50% in coordination of care (as documented) at patient's floor/unit and/or counseling patient: Coding Level of Care Code 74102 INT INP/OBS CARE 3/75MIN Diagnoses STEMI (ST elevation myocardial infarction) I21.3 Acute cholecystitis K81.0 Hypothyroidism (acquired) E03.9
[2023-09-14] MEDS: Heparin IV Adult Wt-Based Standard w/ INITIAL Bolus Protocol IV SCH (02:52)
[2023-09-14] MEDS: PIPERACILLIN/TAZOBACTAM 4.5 GM/100 ML BAG IV ONE (02:59)
[2023-09-14] MEDS: ASPIRIN 81 MG CHEW PO STA (02:59)
[2023-09-14 03:02] LABS: Partial Thromboplastin Time 28 Seconds (21-31)
[2023-09-14] MEDS ORDERED: ONDANSETRON INJ 2 MG/ML 2 ML VIAL IV PRN (03:10)
[2023-09-14] MEDS ORDERED: Heparin IV Adult Wt-Based Standard w/ INITIAL Bolus Protocol IV STA (03:18)
[2023-09-14] MEDS ORDERED: HEPARIN SOD (PORCINE) 1000 UNIT/ML IV ONE (03:33)
[2023-09-14] MEDS: HEPARIN SODIUM/DEXTROSE 25,000 UNITS/500 ML BAG IV SCH ×2 (03:50→04:15)
[2023-09-14] MEDS: HEPARIN SOD (PORCINE) 1000 UNIT/ML IV ONE (03:51)
[2023-09-14 04:25] LABS: Hematocrit (blood only) 28.5 % (37.0-47.0); Hemoglobin 9.4 g/dl (12.0-16.0); Mean Corpuscular Hemoglobin 30.7 pg (25.0-34.0); Mean Corpuscular Volume 93.1 fL (80.0-100.0); Mean Platelet Volume 10.6 fL (9.4-12.4); Nucleated RBC # (auto) 0.03 K/uL (0.00-0.12); Nucleated RBC % (auto) 0.3 %; Platelet Count 467 K/uL (130-400); RDW Standard Deviation 46.9 fL (36.4-46.3); Red Blood Count 3.06 M/uL (4.20-5.40); White Blood Count 10.06 K/ul (4.8-10.8)
[2023-09-14 04:40] LABS: Magnesium 2.3 mg/dl (1.7-2.4)
[2023-09-14 04:42] LABS: Albumin Level 3.3 gm/dl (3.4-5.0); Bilirubin Direct 0.1 mg/dl (0-0.2); Bilirubin,Total 0.3 mg/dl (0.2-1.0); Calcium 8.3 mg/dl (8.6-10.3); Creatinine Clr Calc Pharmacy 38.3 ml/min; Est GFR (Non-African American) 49.2 ml/min; Potassium 4.6 mmol/L (3.5-5.1); Total Protein 6.9 gm/dl (6.0-8.3)
[2023-09-14 04:48] LABS: Troponin I High Sensitivity 2183.6 pg/ml (0-14)
[2023-09-14] MEDS: LEVOTHYROXINE SODIUM 50 MCG TABLET PO SCH (06:45)
[2023-09-14] MEDS: PIPERACILLIN/TAZOBACTAM 4.5 GM in DEXTROSE 5% MINI-B 100 ML IV SCH (08:28)
[2023-09-14] MEDS: ASPIRIN 81 MG ECTAB PO SCH (08:29)
--- NOTE | 2023-09-14 08:30 | XRay Report ---
XR chest 1V portable CLINICAL HISTORY: Shortness of breath. COMPARISON STUDY: Chest radiograph May 05, 2015. FINDINGS: There is no pneumothorax. Small left pleural effusion is noted. There are bibasilar opaciti es, greater on the left. There is moderate cardiomegaly with pulmonary vascular congestion. IMPRESSION: 1. Cardiomegaly with pulmonary vascular congestion. 2. Small left pleural effusion. Bibasilar opacities which favor atelectasis over an infectious proces s. ACT 112: Negative or not required by law. Electronically signed by: Scott De Anda M.D. 09/14/2023 8:28 AM
[2023-09-14] MEDS: clonazePAM 0.5 MG TAB PO SCH (08:36)
--- NOTE | 2023-09-14 08:39 | Ultrasound Report ---
US liver CLINICAL HISTORY: Right upper quadrant abdominal pain. Evaluate for acute cholecystitis. COMPARISON STUDY: CT of the abdomen and pelvis September 13, 2023. FINDINGS: Hepatic echogenicity is increased. There is a 9 mm lateral segment hepatic cyst. This exam is compromised by suboptimal penetration. Pancreas is unremarkable. There is no biliary ductal dilata tion. No gallstones are present. There is mild gallbladder wall thickening. No sonographic Rico sig n was elicited. There is no right hydronephrosis. Trace right pleural effusion is incidentally noted. IMPRESSION: 1. No gallstones. No sonographic Rico sign. Mild gallbladder wall thickening, a nonspecific finding . No convincing evidence for acute cholecystitis. 2. Hepatic steatosis. 3. No biliary ductal dilatation. ACT 112: Negative or not required by law. Electronically signed by: Scott De Anda M.D. 09/14/2023 8:37 AM
--- NOTE | 2023-09-14 09:32 | Surgery Consultation ---
Date of Consultation September 14, 2023 Assessment & Plan (1) Abdominal pain, RUQ: She has no leukocytosis and currently no right upper quadrant pain. Ultrasound did not show gallstones or evidence of acute cholecystitis. I suspect her symptoms and laboratory abnormalities are coming from her heart issues. We will sign off. Please call if any questions or concerns. (2) ST elevation (STEMI) myocardial infarction: (3) Hypertension: (4) STEMI (ST elevation myocardial infarction): History of Present Illness Attending Physician: Serina Laureano MD History of Present Illness Carmela is a pleasant 83-year-old female who lives at [facility]. She is here with a very close friend. Apparently she began having some dizziness lethargy and shortness of breath yesterday. Originally she was brought to the emergency room and discharged. They subsequently called her back into the hospital for questionable findings on CT scan of cholecystitis. During her second workup it was noted that she was probably having a non-ST elevation MS and troponins were elevated. She is currently feeling well. She denies chest pain or shortness of breath or abdominal pain currently. Allergies Allergy/AdvReac Type Severity Reaction Status Date / Time codeine Allergy Severe THROAT Verified 04/13/22 15:01 SWELLING gluten Allergy Intermediate WEIGHT LOSS Verified 04/13/22 15:01 Penicillins Allergy Intermediate RASH Verified 04/13/22 15:01 Sulfa (Sulfonamide Allergy Mild GI SYMPTOMS Verified 04/13/22 15:01 Antibiotics) pregabalin [From Lyrica] Allergy Unverified 05/08/22 09:42 timolol Allergy Unverified 05/08/22 09:42 lactose AdvReac Unknown GI SYMPTOMS Verified 04/13/22 15:01 Home Medications Medication Instructions Recorded Confirmed Type levothyroxine 50 mcg tablet 50 mcg PO DAILY #90 tabs 05/17/22 09/14/23 Rx mirtazapine 15 mg tablet 15 mg PO QPM #90 tabs 05/17/22 09/14/23 Rx oxycodone 5 mg tablet 5 mg PO TID PRN pain #90 tabs 09/21/22 09/14/23 Rx aspirin 81 mg tablet,delayed 81 mg PO DAILY 09/14/23 09/14/23 History release clonazepam 0.5 mg tablet 0.5 mg PO BID 09/14/23 09/14/23 History Patient History Medical History (Updated 09/14/23 @ 08:46 by Yari Thao DO) Hypothyroidism (acquired) Depression with anxiety Hyperlipidemia Hypertension History of melanoma (~2004) Allergic rhinitis Arthritis Ischemic stroke (~05/2016) Surgical History S/P fine needle aspiration (~07/2004) thyroid H/O squamous cell carcinoma excision H/O melanoma excision History of spinal surgery discectomy lumbar, spurs/cysts L4-L5 History of arthroscopy of knee (~03/2005) meniscal tear History of surgical removal of lesion History of dilation and curettage History of hemorrhoidectomy History of tonsillectomy Family History Family/Other Skin cancer Hypothyroidism Rheumatoid arthritis Sister Skin cancer Celiac disease Father Heart disease Osteoporosis Stroke syndrome Thyroid disorder Myocardial infarction Mother COPD (chronic obstructive pulmonary disease) Stroke Sister , age 58 Lung cancer Denies family history of Ovarian cancer Prostate cancer Diabetes Breast cancer Colorectal cancer Social History Smoking Status: Never smoker Do You Dip or Chew Tobacco: No; Hx Alcohol Use: No Hx Substance Use: No Preferred Language: Maldivian Visual Impairment: No Limitations Hearing Ability: Normal Lab Clerk Required: No Beliefs That Will Affect Care: None marital status: Current Living Situation: Spouse current occupational status: retired How many Children do You have: 2 Feels Safe at Home: Yes Childhood Exposure to Second-Hand Smoke: Yes Diet: gluten free and other Diet Comment: Mediteranean caffeine: Yes (1 glass of tea in the morning ) during the past year weight has: remained stable Dental Care, Regularly: Yes Physical Activity Frequency: 3-4 Times per Week Physical Activity Frequency Comment: walks Seatbelt Use: always Sunscreen Use: Yes Assistive Devices: None Review of Systems Review of Systems: All systems reviewed & are unremarkable except as noted in HPI & below Physical Exam Constitutional: WD/WN, vitals as above no acute distress and not ill appearing Eyes: PERRL, conjunctivae normal, anicteric sclerae EOM intact bilaterally ENMT: external ear and nose normal, oropharynx normal Ears: no hearing impairment Neck: trachea midline, no thyromegaly Respiratory: normal respiratory effort; no respiratory distress and does not use accessory muscles Cardiovascular: Rate/Rhythm: regular rate and regular rhythm Gastrointestinal (Abdomen): normal bowel sounds, soft, nontender, no hepatosplenomegaly Skin: no rashes, warm and dry Psychiatric: Orientation: alert, oriented x 3 and cooperative Results & Data Vital Signs (Past 12 Hours) Vital Signs Temp Pulse Pulse Pulse Resp BP Pulse Ox 09/14/23 07:37 36.6 C 86 18 127/70 94 09/14/23 06:27 09/14/23 05:58 36.7 C 81 18 153/83 H 95 09/14/23 05:00 09/14/23 02:00 93 H 18 153/83 H 92 09/14/23 01:28 89 20 130/81 95 09/14/23 00:13 90 09/13/23 23:41 85 16 157/80 H 93 O2 Del Method 09/14/23 07:37 Room Air 09/14/23 06:27 Room Air 09/14/23 05:58 Room Air 09/14/23 05:00 Room Air 09/14/23 02:00 Room Air 09/14/23 01:28 Room Air 09/14/23 00:13 09/13/23 23:41 Room Air PG Care Time/CCT Total # of Minutes Spent Total Time Spent with Patient: Total time spent is greater than 50% in coordination of care (as documented) at patient's floor/unit and/or counseling patient: Coding Level of Care Code 02949 INT INP/OBS CARE 3/75MIN Diagnoses Abdominal pain, RUQ R10.11 ST elevation (STEMI) myocardial infarction I21.3 Hypertension I10
[2023-09-14 10:58] LABS: ANTI-Xa, UFH(UnfractionatedHep 0.68 IU/ml (0.3-0.7)
--- NOTE | 2023-09-14 11:35 | Cardiology Consultation ---
Date of Consultation September 14, 2023 Assessment & Plan (1) ST elevation (STEMI) myocardial infarction: -although no classic NH symptoms, there has been a change in her clinical status recently. -EKG clearly abnormal suggesting an inferior wall event. -echocardiogram notes normal systolic function with an infero posterior wall motion abnormality. -high sensitivity troponin elevated at 2183. -suggested urgent cardiac catheterization. -she may have an element of pulmonary edema. -I have introduced Dr. Scott to the patient. (2) Hypertension: -adequate control on current regimen. (3) Hyperlipidemia: -will need high-intensity statin therapy. History of Present Illness Attending Physician: Serina Laureano MD History of Present Illness Mrs. Pat is an 83-year-old female admitted earlier today with concerns over possible acute cholecystitis. She was subsequently found to have an abnormal EKG and elevated troponin levels, and therefore, this consultation was ordered. The patient presented to the emergency room yesterday because of complaints of dizziness, lethargy, and shortness of breath. She was discharged back to home, however, was called back to the emergency room for questionable findings on the CT scan suggesting cholecystitis. Her initial EKG noted sinus rhythm with an injury current in the inferior leads. However, the patient is experiencing no chest symptoms, therefore, a heart alert was not initiated. She was started on a heparin drip and admitted for observation. At no time has the patient experienced chest discomfort. The family has noted some shortness of breath with exertion over the last 5-7 days. The patient does not carry a cardiac history. She has never had a cardiac catheterization. Currently, patient is resting comfortably in bed without complaints. Her daughter and a friend are at the bedside. Past medical and surgical history 1. Hypertension 2. Hypercholesterolemia 3. Hypothyroidism 4. CVA-May 2016 5. History of malignant melanoma 6. Anxiety/depression 7. L4-5 diskectomy 8. D&C 9. Hemorrhoidectomy 10. Tonsillectomy Social history . Lives at [facility]. No tobacco alcohol Family history Noncontributory Review of systems A 10 point review systems was negative except that described above. Allergies Allergy/AdvReac Type Severity Reaction Status Date / Time codeine Allergy Severe THROAT Verified 04/13/22 15:01 SWELLING gluten Allergy Intermediate WEIGHT LOSS Verified 04/13/22 15:01 Penicillins Allergy Intermediate RASH Verified 04/13/22 15:01 Sulfa (Sulfonamide Allergy Mild GI SYMPTOMS Verified 04/13/22 15:01 Antibiotics) pregabalin [From Lyrica] Allergy Unverified 05/08/22 09:42 timolol Allergy Unverified 05/08/22 09:42 lactose AdvReac Unknown GI SYMPTOMS Verified 04/13/22 15:01 Home Medications Medication Instructions Recorded Confirmed Type levothyroxine 50 mcg tablet 50 mcg PO DAILY #90 tabs 05/17/22 09/14/23 Rx mirtazapine 15 mg tablet 15 mg PO QPM #90 tabs 05/17/22 09/14/23 Rx oxycodone 5 mg tablet 5 mg PO TID PRN pain #90 tabs 09/21/22 09/14/23 Rx aspirin 81 mg tablet,delayed 81 mg PO DAILY 09/14/23 09/14/23 History release clonazepam 0.5 mg tablet 0.5 mg PO BID 09/14/23 09/14/23 History Patient History Medical History (Updated 09/14/23 @ 08:46 by Yari Thao DO) Hypothyroidism (acquired) Depression with anxiety Hyperlipidemia Hypertension History of melanoma (~2004) Allergic rhinitis Arthritis Ischemic stroke (~05/2016) Surgical History S/P fine needle aspiration (~07/2004) thyroid H/O squamous cell carcinoma excision H/O melanoma excision History of spinal surgery discectomy lumbar, spurs/cysts L4-L5 History of arthroscopy of knee (~03/2005) meniscal tear History of surgical removal of lesion History of dilation and curettage History of hemorrhoidectomy History of tonsillectomy Family History Family/Other Skin cancer Hypothyroidism Rheumatoid arthritis Sister Skin cancer Celiac disease Father Heart disease Osteoporosis Stroke syndrome Thyroid disorder Myocardial infarction Mother COPD (chronic obstructive pulmonary disease) Stroke Sister , age 58 Lung cancer Denies family history of Ovarian cancer Prostate cancer Diabetes Breast cancer Colorectal cancer Social History Smoking Status: Never smoker Do You Dip or Chew Tobacco: No; Hx Alcohol Use: No Hx Substance Use: No Preferred Language: Nauruan Visual Impairment: No Limitations Hearing Ability: Normal Pneumatic Tube Fitter Required: No Beliefs That Will Affect Care: None marital status: Current Living Situation: Spouse current occupational status: retired How many Children do You have: 2 Feels Safe at Home: Yes Childhood Exposure to Second-Hand Smoke: Yes Diet: gluten free and other Diet Comment: Mediteranean caffeine: Yes (1 glass of tea in the morning ) during the past year weight has: remained stable Dental Care, Regularly: Yes Physical Activity Frequency: 3-4 Times per Week Physical Activity Frequency Comment: walks Seatbelt Use: always Sunscreen Use: Yes Assistive Devices: None Physical Exam Physical Exam: In general this is a well-developed well-nourished white female in no acute distress. HEENT exam is negative. Neck is supple with full carotid upstrokes. There are no carotid bruits. Jugular venous pressure is flat at 90. There is no thyromegaly. Cardiovascular exam reveals a regular rhythm with a normal S1 and S2. No S3, S4, or murmurs are noted. Lungs are clear without rales, rhonchi, or wheezes. Abdomen is soft and nontender without bruits. Extremities reveal intact radial artery and posterior tibial pulses bilaterally. There is no peripheral edema. Results & Data Vital Signs (Past 12 Hours) Vital Signs Temp Pulse Pulse Pulse Resp BP Pulse Ox 09/14/23 10:17 09/14/23 07:37 36.6 C 86 18 127/70 94 09/14/23 06:27 09/14/23 05:58 36.7 C 81 18 153/83 H 95 09/14/23 05:00 09/14/23 02:00 93 H 18 153/83 H 92 09/14/23 01:28 89 20 130/81 95 09/14/23 00:13 90 09/13/23 23:41 85 16 157/80 H 93 O2 Del Method 09/14/23 10:17 Room Air 09/14/23 07:37 Room Air 09/14/23 06:27 Room Air 09/14/23 05:58 Room Air 09/14/23 05:00 Room Air 09/14/23 02:00 Room Air 09/14/23 01:28 Room Air 09/14/23 00:13 09/13/23 23:41 Room Air Laboratory Results CBC notes hemoglobin 9.4, hematocrit 28.5, white count 10.06, and platelet count 4 in 67,000. Electrolytes note a sodium of 131, potassium 4.6, chloride 98, bicarb 22, BUN 36, creatinine 1.06, glucose 114. Initial high sensitivity troponin was 2094 with follow-up value of 2183. AST is elevated 72 as is the ALT 175. Diagnostic Findings Initial EKG noted atrial fibrillation with an inferior injury pattern. Second EKG notes sinus rhythm with an inferior injury pattern. Brief look at her e chocardiogram noted normal systolic function and an infero posterior wall motion abnormality. Chest x-ray notes cardiomegaly, left pleural effusion, and evidence of pulmonary edema. PG Care Time/CCT Total # of Minutes Spent Total Time Spent with Patient: Total time spent is greater than 50% in coordination of care (as documented) at patient's floor/unit and/or counseling patient: Coding Level of Care Code 69299 INT INP/OBS CARE 3/75MIN Diagnoses ST elevation (STEMI) myocardial infarction I21.3 Hypertension I10 Hyperlipidemia E78.5
[2023-09-14] MEDS: niCARdipine HCL INJ 2.5 MG/ML 10 ML AMP ONE (12:00)
[2023-09-14] MEDS: NITROGLYCERIN/D5W 100MCG/ML 20ML SYR ONE (12:00)
[2023-09-14] MEDS: OPTIRAY 350 ONE (12:01)
[2023-09-14] MEDS: diphenhydrAMINE 50 MG/ML VIAL ONE (12:01)
[2023-09-14] MEDS: fentaNYL citrate PF 100 MCG/2 ML VIAL ONE (12:02)
[2023-09-14] MEDS: MIDAZOLAM HCL 1 MG/ML 2ML VIAL ONE (12:04)
[2023-09-14] MEDS: HEPARIN (PORCINE) 1000 UNIT/ML 10 ML (CATH LAB USE ONLY) ONE (12:04)
--- NOTE | 2023-09-14 12:24 | Pre Anesthesia Assessment ---
Date of Service September 14, 2023 Pre Sedation Assessment Vital Signs Temp Pulse Pulse Pulse Resp BP BP 09/14/23 10:17 09/14/23 07:37 97.9 F 86 18 127/70 09/14/23 06:27 09/14/23 05:58 98.1 F 81 18 153/83 H 09/14/23 05:00 09/14/23 02:00 93 H 18 153/83 H 09/14/23 01:28 89 20 130/81 09/14/23 00:13 90 09/13/23 23:41 85 16 157/80 H 09/13/23 21:27 98.2 F 94 H 17 130/77 Pulse Ox O2 Del Method 09/14/23 10:17 Room Air 09/14/23 07:37 94 Room Air 09/14/23 06:27 Room Air 09/14/23 05:58 95 Room Air 09/14/23 05:00 Room Air 09/14/23 02:00 92 Room Air 09/14/23 01:28 95 Room Air 09/14/23 00:13 09/13/23 23:41 93 Room Air 09/13/23 21:27 91 Cardiovascular + irregularly irregular Respiratory + respiratory effort normal Pre-Sedation Airway Assessment Smoking Status: Never smoker ASA: ASA3 Procedure Planning Contraindications for Sedation: none Current Medications Reviewed: Yes Notes The planned sedation has been discussed with the patient. Informed Consent was obtained. I have identified the patient, determined the appropriateness of sedation and have assessed the patient immediately prior to the procedure. All medicine(s) and interventions are by my order.
--- NOTE | 2023-09-14 12:24 | Post Anesthesia Assessment ---
Date of Service September 14, 2023 Post Sedation Assessment Vital Signs Temp Pulse Pulse Pulse Resp BP BP 09/14/23 10:17 09/14/23 07:37 97.9 F 86 18 127/70 09/14/23 06:27 09/14/23 05:58 98.1 F 81 18 153/83 H 09/14/23 05:00 09/14/23 02:00 93 H 18 153/83 H 09/14/23 01:28 89 20 130/81 09/14/23 00:13 90 09/13/23 23:41 85 16 157/80 H 09/13/23 21:27 98.2 F 94 H 17 130/77 Pulse Ox O2 Del Method 09/14/23 10:17 Room Air 09/14/23 07:37 94 Room Air 09/14/23 06:27 Room Air 09/14/23 05:58 95 Room Air 09/14/23 05:00 Room Air 09/14/23 02:00 92 Room Air 09/14/23 01:28 95 Room Air 09/14/23 00:13 09/13/23 23:41 93 Room Air 09/13/23 21:27 91 Recovery Score Activity: Moves 4 extremities Respiration: Deep Breath/Cough Circulation: +/-20% PreAnes Value Consciousness: Arouseable (by name) Oxygen Saturation: O2 needed for >90% Discharge Sedation Level of Care: Fast Track Phase II Post Sedation Plan On clinical assessment, the patient appears to have tolerated the sedation without complications. Patient is recovering as anticipated. Patient will continue to be monitored by nursing and may be discharged when sedation discharge criteria are met per below protocol. Upon Completions of procedure up to 15 minutes continue every 5 minute vital signs and the P.A.R. score; then discharge to a Phase I or Fast Track to Phase II per the following guidelines: * Discharge Patient to appropriate Phase II area if PAR is 8 or greater or return to pre- procedure baseline. The post - procedure orders will be as directed. * If PAR score is less than 8 or not return to pre-procedure baseline then patient will follow Phase I monitoring till PAR is reached for Phase II. The Phase I may be done in procedure room or may call to secure a Phase I area. * If naloxone or flumazenil are used for reversal, hold in Phase I for continued monitoring from when last reversal dose was given for a minimum of 60 minutes or longer pending the nurse and/or physician discretion of patient condition before discharge to Phase II. Please call the Sedation Physician to re-evaluate and complete post-note for discharge to Phase II area. Do NOT discharge from procedure sedation or Phase 1 until post- sedation evaluation note is complete by procedure /sedation MD Sedation Discharge Instructions to be given to the patient at discharge to home.
--- NOTE | 2023-09-14 12:29 | Cardiac Catheterization ---
[facility] Data: [facility] [employer] [facility] Cardiac Status Clinical evaluation leading to the procedure CAD Presenation: Non STEMI Anginal Classification: No Symptoms Diagnostic Physicians Name: Dorian Soctt MD Closure Device Recommendations: Medical Therapy and/or Counseling Cardiac Cath Procedure Full Procedure Date September 14, 2023 Pre-Procedure Diagnosis Pre-Procedure Diagnosis: Acute Coronary Syndrome and Cardiomyopathy AUC Score AUC Score: 8 Post-Procedure Diagnosis Post-Procedure Diagnosis: Severe CAD and Normal Intracardiac Pressures Procedure(s) Performed Procedure(s) Performed: Coronary Angiography and Left Heart Cath High Value Associate Dorian Scott MD Veterinary X Ray Operator(s) [place] Estimated Blood Loss Estimated Blood Loss: 5 Medication(s) Medication(s): Diphenhydramine, Fentanyl, Heparin, Lidocaine 1%, Nicardipine, Nitroglycerin and Versed Summary of Findings Indication: ACS. Patient presented with suspected gallbladder disease. Was found to have incidental inferior ST elevations without chest pain. Modest flat HS TropI elevation with inferolateral wall motion abnormality. Access: 6 Fr right radial artery Catheters: Yantis Findings: LM -80% hazy, distal left main LAD -medium caliber, 95% ostial LAD, proximal to mid LAD heavily calcified with mild diffuse disease, 70% mid LAD at takeoff of D2. Small latemid/distal vessel tortuous with mild disease. D2 100% occluded and fills retrograde via left to left collaterals. Circumflex -medium caliber, 70% ostial, 80% mid segment stenosis after takeoff of OM 2. Medium OM 2 with luminal irregularities. RCA -dominant, heavily calcified, medium caliber, 100% mid segment occlusion. Right PDA fills partially retrograde via [id number]-[id number] collaterals from septals. Right PLB fills partially via collaterals from circumflex. LVEDP -15 Arterial Closure: TR band Summary: 1. Severe multivessel coronary artery disease -80% hazy distal left main involving bifurcation with LAD/circumflex 95% ostial LAD, 70% mid LAD. Occluded D2 70% ostial, 80% mid circumflex 100% mid RCA. PDA/PLB fills partially via cyln-yl-iwilx collaterals. 2. Normal intracardiac filling pressure Recommendations: Complex high risk disease. Patient unlikely to be a bypass candidate with comorbidities. Patient chest pain-free and hemodynamically stable. Not a PCI candidate. Recommend medical management. Discussed options with family and in agreement. Hemodynamics Rest Ao:: 151/68/99 Final Ao: 145/66/88 LV: 149/15 Recommendations Recommendations: Medical Therapy and/or Counseling Specimens Specimens: None Radiation Exposure (mGy) 355 Contrast (mls) 30 Anesthesia Moderate 4071-5625 Procedural Complication(s) None Disposition Ch[facility] [employer] Hel[facility] Holding/Recovery I attest to the content of the Intraoperative Record and any orders documented therein. Any exceptions are noted below. [facility] Card Cath Procedure Codes Cardiac Catheterization Procedure 1: Cardiovascular Cath Procedures: 27475 Coronaries and LHC (+/-LV) Moderate Sedation Procedure 1: Sedation/Anesthesia: 95203 Mod Sedation by the same physician;Init15 Min Child Age 5 & Up PG Care Time/CCT Total # of Minutes Spent Total Time Spent with Patient: Total time spent is greater than 50% in coordination of care (as documented) at patient's floor/unit and/or counseling patient:
--- NOTE | 2023-09-14 13:32 | Electrocardiogram Report ---
Test Reason : Blood Pressure : / mmHG Vent. Rate : 086 BPM Atrial Rate : 086 BPM P-R Int : 186 ms QRS Dur : 084 ms QT Int : 388 ms P-R-T Axes : 039 -02 084 degrees QTc Int : 464 ms Normal sinus rhythm Inferior infarct , possibly acute * ACUTE [place] Poor R wave progression, consider anterior AZ vs. lead placement vs. LVH Abnormal ECG When compared with ECG of 17-JAN-2018 10:51, Inferior infarct is now Present Confirmed by Rolf Anne ([id number]) on 09/14/2023 1:31:54 PM Referred By: REFERRED SELF Confirmed By:Rolf Anne
--- NOTE | 2023-09-14 13:36 | Electrocardiogram Report ---
Test Reason : Blood Pressure : / mmHG Vent. Rate : 070 BPM Atrial Rate : 312 BPM P-R Int : 000 ms QRS Dur : 094 ms QT Int : 412 ms P-R-T Axes : 000 019 108 degrees QTc Int : 444 ms Atrial fibrillation Low voltage QRS Inferior infarct (cited on or before 13-SEP-2023) ACUTE [place] / STEMI Consider right ventricular involvement in acute inferior infarct Abnormal ECG When compared with ECG of 13-SEP-2023 23:50, (unconfirmed) Atrial fibrillation has replaced Sinus rhythm Confirmed by Rolf Anne ([id number]) on 09/14/2023 1:36:13 PM Referred By: REFERRED SELF Confirmed By:Rolf Anne
--- NOTE | 2023-09-14 14:02 | XCELERA ---
[id number]
[2023-09-14] MEDS: oxyCODONE HCL IR 5 MG TAB (IMMEDIATE RELEASE) PO PRN (14:34)
--- NOTE | 2023-09-14 15:20 | Communication Note ---
Date of Service: September 14, 2023 Please refer to the H&P dictated by Dr. Santa Sanchez earlier this morning for details of presentation on admission. In brief, this is a patient who p resented with dyspnea, ambulatory dysfunction. Her EKG was concerning for inferior ST elevation PA with elevated troponin. Her CT abdomen was concerning for acute cholecystitis. The cardiac issues took precedence. She was seen in consultation by cardiology who called a heart alert and the patient was taken to the [facility] immediately. Of note, the family notified me that her CODE STATUS is DNR/DNI. The change was made in the orders. Cardiac catheterization today 09/13 revealed severe multivessel coronary artery disease and the patient is not a candidate for CABG. She will be medically managed. Fortunately she is chest pain-free. A palliative approach may be considered. I will talk to the family again tomorrow. Echocardiogram showed normal systolic LV function but it did show nikkie nesis of the proximal inferior posterior wall. The CT abdomen was followed with an ultrasound of the right upper quadrant which ruled out acute cholecystitis. General surgery signed off of the case because of a negative right upper quadrant ultrasound ruling out acute cholecystitis. The patient has no leukocytosis or right upper quadrant pain.
[2023-09-14] MEDS: MIRTAZAPINE TAB 15 MG TAB PO SCH (19:22)
[2023-09-14] MEDS: ACETAMINOPHEN 325 MG TAB PO PRN (19:27)
[2023-09-15 01:04] LABS: ANTI-Xa, UFH(UnfractionatedHep 0.37 IU/ml (0.3-0.7)
[2023-09-15 07:18] LABS: Hematocrit (blood only) 28.6 % (37.0-47.0); Hemoglobin 9.9 g/dl (12.0-16.0); Mean Corpuscular Hemoglobin 30.9 pg (25.0-34.0); Mean Corpuscular Hgb Conc 34.6 g/dL (32.0-36.0); Mean Corpuscular Volume 89.4 fL (80.0-100.0); Mean Platelet Volume 10.2 fL (9.4-12.4); Nucleated RBC # (auto) 0.02 K/uL (0.00-0.12); Nucleated RBC % (auto) 0.2 %; Platelet Count 474 K/uL (130-400); RDW Standard Deviation 44.2 fL (36.4-46.3); White Blood Count 11.09 K/ul (4.8-10.8)
[2023-09-15 07:34] LABS: Albumin Level 3.2 gm/dl (3.4-5.0); BUN Creatinine Ratio 21.6 (10-20); Bilirubin Direct 0.1 mg/dl (0-0.2); Bilirubin,Total 0.4 mg/dl (0.2-1.0); Calcium 7.9 mg/dl (8.6-10.3); Creatinine Clr Calc Pharmacy 37.2 ml/min; Est GFR (African American) 59.7 ml/min; Est GFR (Non-African American) 51.5 ml/min; Potassium 3.7 mmol/L (3.5-5.1); Total Protein 6.4 gm/dl (6.0-8.3)
[2023-09-15] MEDS: METOPROLOL SUCC 25MG EXT REL TAB PO SCH (10:12)
[2023-09-15] MEDS: ATORVASTATIN 40 MG TAB PO SCH (10:12)
--- NOTE | 2023-09-15 12:17 | Electrocardiogram Report ---
Test Reason : Blood Pressure : / mmHG Vent. Rate : 092 BPM Atrial Rate : 092 BPM P-R Int : 190 ms QRS Dur : 096 ms QT Int : 404 ms P-R-T Axes : 010 030 112 degrees QTc Int : 499 ms Normal sinus rhythm Possible Left atrial enlargement Inferior infarct (cited on or before 13-SEP-2023) T wave abnormality, consider lateral ischemia ACUTE [place] / STEMI Consider right ventricular involvement in acute inferior infarct Abnormal ECG When compared with ECG of 14-SEP-2023 06:50, Sinus rhythm has replaced Atrial fibrillation Serial changes of Inferior infarct Present Confirmed by Dorian Parker ([id number]) on 09/15/2023 12:17:41 PM Referred By: REFERRED SELF Confirmed By:Murtaza Parker
--- NOTE | 2023-09-15 12:24 | Electrocardiogram Report ---
Test Reason : Blood Pressure : / mmHG Vent. Rate : 082 BPM Atrial Rate : 246 BPM P-R Int : 000 ms QRS Dur : 090 ms QT Int : 412 ms P-R-T Axes : 255 044 250 degrees QTc Int : 481 ms Atrial flutter with variable A-V block Inferior infarct (cited on or before 13-SEP-2023) T wave abnormality, consider lateral ischemia ACUTE [place] / STEMI Consider right ventricular involvement in acute inferior infarct Abnormal ECG When compared with ECG of 14-SEP-2023 10:31, (unconfirmed) Atrial flutter has replaced Sinus rhythm Serial changes of evolving Inferior infarct Present Confirmed by Dorian Parker ([id number]) on 09/15/2023 12:24:14 PM Referred By: REFERRED SELF Confirmed By:Murtaza Parker
--- NOTE | 2023-09-15 15:27 | Hospitalist Progress Note ---
Date of Service September 15, 2023 Assessment & Plan (1) STEMI (ST elevation myocardial infarction): Plan: Inferior ST elevation MT status post cardiac catheterization that showed severe multivessel disease Patient is not a candidate for bypass surgery She is currently chest pain-free fortunately Echocardiogram shows normal EF with akinesis of proximal inferoposterior wall Medical management On heparin drip which will be continued for 48 hours Started on statin, metoprolol Continue aspirin Discussed with son Sylvester at [phone] (he is the point of contact) and daughter Baylee on the phone. They would like to pursue a palliative approach. Would like to discuss the case with palliative care. Consult palliative care (2) Acute cholecystitis: Plan: noted on CT imaging. Presently afebrile, HD stable. No leukocytosis. RUQ US neg Gen surgery involved. Per surgery, not acute cholecystitis d/c Zosyn (3) Hypothyroidism (acquired): Plan: Chronic. TSH WNL at 1.65 -Continue Synthroid 50mcg po daily Admission and Anticipated Discharge Date Admission Date: September 14, 2023 Subjective Patient had a heart alert called because of ST elevation MT on 09/13. Cardiac catheterization revealed severe coronary artery disease and multiple blood vessels. Medical management is being pursued as the patient is not a candidate for bypass. The patient denies any chest pain or any pain anywhere. She is quite forgetful. Review of Systems Review of Systems: Unobtainable due to cognitive status Physical Exam Physical Exam: General: Awake, conversant. She was eating her meal when I entered her room. Pleasantly confused. Heart: S1, S2/regular rate and rhythm, no murmur rubs or gallops Lungs: Clear to auscultation bilaterally. Normal effort Abdomen: Soft/nontender/nondistended. No hepatosplenomegaly Extremities: No clubbing/cyanosis. No edema Behavior: Appropriate, cooperative Results & Data Results & Data Vital Signs (Past 12 Hours) Vital Signs Temp Pulse Pulse Resp BP Pulse Ox O2 Del Method 09/15/23 14:51 73 09/15/23 11:38 36.5 C 77 18 145/73 H 91 Room Air 09/15/23 08:49 Room Air 09/15/23 07:26 36.8 C 79 18 120/77 92 Room Air 09/15/23 07:23 70 Laboratory Results Abnormal lab results 09/14/23 09/15/23 Range/Units 15:12 06:54 WBC 11.09 H (4.8-10.8) K/ul RBC 3.20 L (4.20-5.40) M/uL Hgb 9.9 L (12.0-16.0) g/dl Hct 28.6 L (37.0-47.0) % Plt Count 474 H (130-400) K/uL Sodium 132 L (136-145) mmol/L BUN/Creatinine Ratio 21.6 H (10-20) Glucose 123 H (70-99(Fasting)) mg/dl Calcium 7.9 L (8.6-10.3) mg/dl ALT 103 H (7-52) U/L Alkaline Phosphatase 180 H (34-104) U/L Troponin I High Sens 1836.7 H* (0-14) pg/ml Albumin 3.2 L (3.4-5.0) gm/dl PG Care Time/CCT Total # of Minutes Spent Total Time Spent with Patient: Total time spent is greater than 50% in coordination of care (as documented) at patient's floor/unit and/or counseling patient: Coding Level of Care Code 07191 SUB INP/OBS CARE 2/35MIN Diagnoses STEMI (ST elevation myocardial infarction) I21.3 Acute cholecystitis K81.0 Hypothyroidism (acquired) E03.9
[2023-09-16 08:06] LABS: ANTI-Xa, UFH(UnfractionatedHep 0.46 IU/ml (0.3-0.7)
--- NOTE | 2023-09-16 12:05 | Palliative Care Consultation ---
Date of Consultation September 16, 2023 Assessment & Plan (1) Weakness generalized: (2) Dysphagia: (3) Aspiration into airway: (4) Confusion: (5) Discussion about advance care planning held with family member: see separate [facility] ACP meeting with family (6) Palliative care by specialist: Met with pt/family. Provided overview of Palliative Medicine, a subspecialty that provides specialized medical care for people living with a serious illness by offering a focus on quality of life. Palliative Medicine is often conflated with hospice: I advised patient/family that Palliative and hospice can be partners but we are not the same. It is important to understand the difference so that we may be informed, and not afraid. Palliative Medicine works to improve QOL through reduction of symptom burden/more control over their illness, for both the patient and family. Palliative medicine clinicians are board certified, specially-trained and another member of the patient's medical care team. We often provide an extra layer of support because our care is based on the needs of the patient, not the prognosis; as such, it's appropriate at any age/advancing stage of a serious illness and can be provided along with curative treatment. Palliative Medicine clinicians are also trained in advanced communication methodologies, to facilitate complex discussions about advanced illness planning, which are needed to help assure that the treatment choices match the patient's goals, aka delivering Goal Concordant care. Finally, we discussed that hospice is a visiting nurse service that focuses on care delivered at the very end of life for patients with terminal illness, with life expectancy less than 6 month. Plan Pt denies acute symptoms at this time She is anxious to get back to [facility] and does not like being here Family are NOK decision makers Thank you for allowing us to participate in the ongoing care of this patient. Please don't hesitate to call or page with any additional concerns. Dr. Kaila Guerrero DNP Director, Palliative Care History of Present Illness Reason for Consultation: goals Attending Physician: Sernia Laureano MD History of Present Illness Carmela is an 83 year old female s/p massive OK , cath + extensive multi vessel disease but she is not a candidate for CABG. Family wishing comfort directed measures and would like her to go back to [facility] She has advancing dementia and she is easily distressed and agitated by bad news, prognosis and mortality discussions and language that conveys "this si serious, we can't fix, etc." her son and dtr are POA Allergies Allergy/AdvReac Type Severity Reaction Status Date / Time codeine Allergy Severe THROAT Verified 04/13/22 15:01 SWELLING gluten Allergy Intermediate WEIGHT LOSS Verified 04/13/22 15:01 Penicillins Allergy Intermediate RASH Verified 04/13/22 15:01 Sulfa (Sulfonamide Allergy Mild GI SYMPTOMS Verified 04/13/22 15:01 Antibiotics) pregabalin [From Lyrica] Allergy Unverified 05/08/22 09:42 timolol Allergy Unverified 05/08/22 09:42 lactose AdvReac Unknown GI SYMPTOMS Verified 04/13/22 15:01 Home Medications Medication Instructions Recorded Confirmed Type levothyroxine 50 mcg tablet 50 mcg PO DAILY #90 tabs 05/17/22 09/14/23 Rx mirtazapine 15 mg tablet 15 mg PO QPM #90 tabs 05/17/22 09/14/23 Rx oxycodone 5 mg tablet 5 mg PO TID PRN pain #90 tabs 09/21/22 09/14/23 Rx aspirin 81 mg tablet,delayed 81 mg PO DAILY 09/14/23 09/14/23 History release clonazepam 0.5 mg tablet 0.5 mg PO BID 09/14/23 09/14/23 History Patient History Medical History (Updated 09/16/23 @ 15:24 by Kaila Guerrero DNP) Palliative care by specialist Discussion about advance care planning held with family member Confusion Aspiration into airway Dysphagia Weakness generalized Hypothyroidism (acquired) Depression with anxiety Hyperlipidemia Hypertension History of melanoma (~2004) Allergic rhinitis Arthritis Ischemic stroke (~05/2016) Surgical History S/P fine needle aspiration (~07/2004) thyroid H/O squamous cell carcinoma excision H/O melanoma excision History of spinal surgery discectomy lumbar, spurs/cysts L4-L5 History of arthroscopy of knee (~03/2005) meniscal tear History of surgical removal of lesion History of dilation and curettage History of hemorrhoidectomy History of tonsillectomy Family History Family/Other Skin cancer Hypothyroidism Rheumatoid arthritis Sister Skin cancer Celiac disease Father Heart disease Osteoporosis Stroke syndrome Thyroid disorder Myocardial infarction Mother COPD (chronic obstructive pulmonary disease) Stroke Sister , age 58 Lung cancer Denies family history of Ovarian cancer Prostate cancer Diabetes Breast cancer Colorectal cancer Social History Smoking Status: Never smoker Do You Dip or Chew Tobacco: No; Hx Alcohol Use: No Hx Substance Use: No Preferred Language: Lao Visual Impairment: No Limitations Hearing Ability: Normal Card Hanger Required: No Beliefs That Will Affect Care: None marital status: Current Living Situation: Spouse current occupational status: retired How many Children do You have: 2 Feels Safe at Home: Yes Childhood Exposure to Second-Hand Smoke: Yes Diet: gluten free and other Diet Comment: Mediteranean caffeine: Yes (1 glass of tea in the morning ) during the past year weight has: remained stable Dental Care, Regularly: Yes Physical Activity Frequency: 3-4 Times per Week Physical Activity Frequency Comment: walks Seatbelt Use: always Sunscreen Use: Yes Assistive Devices: Walker Review of Systems Review of Systems: Unobtainable due to cognitive status Physical Exam Physical Exam: Limited exam pt awake, alert to self cannot provide HPI Bitemp wasting perrla, eomi's Neck supple no stridor resp effort WAL at rest, no conversational dyspnea, no overt wheezing, no rhonchi S1S2 Abd scaphoid generalzied weakness skin pale but warm to touch Results & Data Vital Signs (Past 12 Hours) Vital Signs Temp Pulse Pulse Resp BP BP Pulse Ox 09/16/23 11:41 37.1 C 88 18 153/80 H 91 09/16/23 07:48 36.8 C 90 18 154/92 H 09/16/23 06:46 96 H 09/16/23 03:32 37.0 C 90 20 154/77 H 90 O2 Del Method 09/16/23 11:41 Room Air 09/16/23 07:48 09/16/23 06:46 09/16/23 03:32 Room Air Laboratory Results data reviewed Diagnostic Findings data reviewed PG Care Time/CCT Total # of Minutes Spent Total Time Spent with Patient: Total time spent is greater than 50% in coordination of care (as documented) at patient's floor/unit and/or counseling patient: I spent 70 minutes overall addressing this case: 15 min in medical data review/discussion with referring provider(s) and/or preparation for the visit 25 min in direct interaction with the patient/exam 00 min in Advance Care Planning/Goals of Care discussions as detailed above in note (must be >16min) 15 min in subsequent review and synthesis of assessment and plan 15 min communicating with other providers regarding the patient's case: [place] [address] IN/OBS CONSULT LVL 5,80M Patient Type New History Comprehensive Exam Comprehensive Medical Decision Making High Complexity Diagnoses Weakness generalized R53.1 Dysphagia R13.10 Aspiration into airway T17.908A Confusion R41.0 Discussion about advance care planning held with family member Z71.0 Palliative care by specialist Z51.5
--- NOTE | 2023-09-16 12:06 | Palliative Family Discussion ---
Date of Service September 16, 2023 Patient Directed Conference Time of [id number] Participants: Kaila Guerrero DNP Patient participation: lacks capacity due to dementia Patient Support System: son and daughter Other Healthcare Provider Participation: None [facility] son is [place] and dtr with severe Lyme at home Advanced Directive available: yes The patient's surrogate medical decision maker participated: yes son and dtr A family meeting was held for CARMELA PAT. This meeting was necessary for determining the appropriate course of treatment. Topics of Discussion Topics of Discussion: 1. Carmela has extensive, multivessel, inoperable CAD 2. She also has progressive dementia, declining PS, worsening cognition. 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 3. i met with Mrs. Pat's son and daughter. They would like comfort care with dc back to [facility] with hospice; they would like tp to remain in her current location if possible and not be moved to SNF if possible. They DO NOT WANT REHAB. They would like her to have meds streamlined to take what is needed but do not feel she needs to stay on blood thinners, anti lipids etc. they would like diet liberated to allow her to have what she wants and they would like her to go back as soon as arrangements can be coordinated but they want to speak with care mgt about hospice agency choices first. I told them i would anticipate a dc in 2-3 days at the most. I wrote comfort care orders, updated nursing and primary team. 4. Also, family asked to pass along to all caregivers and medical teams: do not discuss prognosis, mortality, complexity of medical issues etc with pt who is unable to process information rationally and instead this drives her anxiety and has become traumatizing. Please share with all involved in her care. Other Content of Meetin. Opportunity given for participants to speak and ask questions. 2. Participants were assured of attention to patient comfort. 3. Reassurance provided. 4. Support was provided for informed, good-latrell decisions. 5. Emotions expressed by family were acknowledged and addressed. 6. care mgt to speak with family re hospice agency choices. Son is also going to ask [facility] team if they have preference for agency. Time Involved in Meeting: I spent 60 minutes overall addressing this case: 5 in medical data review/discussion with referring provider(s) and/or preparation for the visit 40 Advance Care Planning/Goals of Care discussions as detailed above in note (must be >16min) 5 in subsequent review and synthesis of assessment and plan 10 in communicating with other providers regarding the patient's case: nursing, primary team Thank you for allowing us to participate in the ongoing care of this patient. Please don't hesitate to call or page with any additional concerns. Dr. Kaila Guerrero DNP Director, Palliative Care
--- NOTE | 2023-09-16 14:09 | Hospitalist Progress Note ---
Date of Service September 16, 2023 Assessment & Plan (1) STEMI (ST elevation myocardial infarction): Plan: Inferior ST elevation [place] status post cardiac catheterization that showed severe multivessel disease Patient is not a candidate for bypass surgery She is currently chest pain-free fortunately Echocardiogram shows normal EF with akinesis of proximal inferoposterior wall Medical management Discontinued heparin drip Started on statin, metoprolol Continue aspirin After discussion with palliative care, family decided on hospice. They would like the patient to go back to [facility]. Hospice will need to be set up. Case management involved. In the next few days, medications may need to be streamlined to what she absolutely needs for comfort reasons. (2) Acute cholecystitis: Plan: noted on CT imaging. Presently afebrile, HD stable. No leukocytosis. RUQ US neg Gen surgery involved. Per surgery, not acute cholecystitis d/c Zosyn (3) Hypothyroidism (acquired): Plan: Chronic. TSH WNL at 1.65 -Continue Synthroid 50mcg po daily Plan Hopefully, patient will be able to go back to [facility] with hospice. Case management involved. Family does not want us to discuss prognosis, mortality, complexity of medical issues etc. with the patient as she gets anxious and is unable to process. Admission and Anticipated Discharge Date Admission Date: September 14, 2023 Subjective Patient denies any chest pain or abdominal pain. She has no new complaints. Spoke to son on the phone. Review of Systems Review of Systems: Unobtainable due to cognitive status Physical Exam Physical Exam: General: Awake, conversant. Pleasantly confused. Heart: S1, S2/regular rate and rhythm, no murmur rubs or gallops Lungs: Clear to auscultation bilaterally. Normal effort Abdomen: Soft/nontender/nondistended. No hepatosplenomegaly Extremities: No clubbing/cyanosis. No edema Behavior: Appropriate, cooperative Results & Data Results & Data Vital Signs (Past 12 Hours) Vital Signs Temp Pulse Pulse Resp BP BP Pulse Ox 09/16/23 11:41 37.1 C 88 18 153/80 H 91 09/16/23 07:48 36.8 C 90 18 154/92 H 09/16/23 06:46 96 H 09/16/23 03:32 37.0 C 90 20 154/77 H 90 O2 Del Method 09/16/23 11:41 Room Air 09/16/23 07:48 09/16/23 06:46 09/16/23 03:32 Room Air PG Care Time/CCT Total # of Minutes Spent Total Time Spent with Patient: Total time spent is greater than 50% in coordination of care (as documented) at patient's floor/unit and/or counseling patient: Coding Level of Care Code 02698 SUB INP/OBS CARE 2/35MIN Diagnoses STEMI (ST elevation myocardial infarction) I21.3 Acute cholecystitis K81.0 Hypothyroidism (acquired) E03.9
[2023-09-16] MEDS ORDERED: ONDANSETRON INJ 2 MG/ML 2 ML VIAL IV PRN (20:15)
[2023-09-16] MEDS ORDERED: LORazepam 0.5 MG in SYRINGE 0.25 ML IV PRN (20:15)
[2023-09-16] MEDS ORDERED: ONDANSETRON 4 MG OD TAB SL PRN (20:15)
[2023-09-16] MEDS: LORazepam 0.5 MG TAB PO PRN (22:16)
[2023-09-16] MEDS ORDERED: oxyCODONE HCL IR 5 MG TAB (IMMEDIATE RELEASE) PO PRN (23:45)
[2023-09-16] MEDS ORDERED: LORazepam 1 MG in SYRINGE 0.5 ML IV PRN (23:45)
[2023-09-16] MEDS ORDERED: LORazepam 1 MG TAB PO PRN (23:45)
--- NOTE | 2023-09-17 12:02 | Discharge Summary ---
Date of Service September 17, 2023 Admission HPI Per Admitting Provider Carmela Pat is an 83yo female with history of prior CVA< HTN, HLP, Hypothyroidism presenting from [facility] with imbalance, ambulatory dysfunction and dyspnea. Patient's niece, Pari, is at bedside and provides history. Patient is fairly functional at baseline - able to ambulate without assistance. Several days ago she was noted to have decreased appetite and oral intake. Also with decreased ambulatory dysfunction - requiring assistance of staff and walker to ambulate as well as HUNTER. She had blood work performed earlier today and was found to have abnormal LFTs so she was sent to [facility] to get a CT of the abdomen. Her CT of the abdomen suggestive of acute cholecystitis therefore she was recommended admission for IV antibiotics. During her initial workup in the ER her EKG showed an acute inferior STEMI. Troponin found to be elevated at 2094.4. Patient denies chest pain, cough, SOB, palpitations, dizziness. Denies fever, chills, nausea, vomiting. She does have some abdominal pain but points to the lower abdomen more than the RUQ. Case discussed [facility] Cardiology - no laboratory animal caretaker immediately Sylvester Pat (son and POA) [phone] Principal Diagnosis STEMI Discharge Exam Patient is resting comfortably. Not using accessory muscles to breath. Discharge Data Allergies Allergy/AdvReac Type Severity Reaction Status Date / Time codeine Allergy Severe THROAT Verified 04/13/22 15:01 SWELLING gluten Allergy Intermediate WEIGHT LOSS Verified 04/13/22 15:01 Penicillins Allergy Intermediate RASH Verified 04/13/22 15:01 Sulfa (Sulfonamide Allergy Mild GI SYMPTOMS Verified 04/13/22 15:01 Antibiotics) pregabalin [From Lyrica] Allergy Unverified 05/08/22 09:42 timolol Allergy Unverified 05/08/22 09:42 lactose AdvReac Unknown GI SYMPTOMS Verified 04/13/22 15:01 Consultations 09/14/23 02:01 ED Decision to Admit Stat 09/14/23 02:35 Consult Cardiology Routine Consult General Surgery Routine 09/15/23 15:58 Consult Palliative Care Routine Procedures Performed Operation Date: 09/14/23 11:30 Actual Procedures p Cineradiography w/Routine Exam - Dorian Scott MD p Cath, Left with Cors and Vent - Dorian Scott MD Ordered Studies 09/14/23 02:25 US abdomen [US liver] Urgent 09/14/23 11:14 CL Cath Imgs for PACS use only Routine Hospital Course (1) STEMI (ST elevation myocardial infarction): Inferior ST elevation [place] status post cardiac catheterization that showed severe multivessel disease Patient is not a candidate for bypass surgery She is currently chest pain-free fortunately Echocardiogram shows normal EF with akinesis of proximal inferoposterior wall Medical management Discontinued heparin drip Started on statin, metoprolol Continue aspirin After discussion with palliative care, family decided on hospice. They would like the patient to go back to [facility]. Case management involved. Patient will be discharged on 09/16 (2) Acute cholecystitis: noted on CT imaging. Presently afebrile, HD stable. No leukocytosis. RUQ US neg Gen surgery involved. Per surgery, not acute cholecystitis d/c Zosyn (3) Hypothyroidism (acquired): Chronic. TSH WNL at 1.65 -Continue Synthroid 50mcg po daily (4) ST elevation (STEMI) myocardial infarction: Total Time Total Time Spent Total Time Spent (In Minutes): 31 Discharge Plan Discharge Items Patient Disposition: Hospice - Medical Facility Reason For Visit: Acute Cholecystitis, Acute [place] Discharge Diagnosis: STEMI Activity: Resume your previous activity Non-emergency contact: Primary Care Provider Call non-emergency contact if: you have any medication questions Follow-up/Referrals: Duke Zelaya MD [Primary Care Provider] - Diet: Regular and Gluten Free Addtl Attending Provider Instructions: Discharged on hospice Pending Studies at Discharge: No Stand-Alone Forms: My [facility] Skilled Items Patient informed of condition?: Yes DNR: Yes (DNR/ DNI) Discharge Level of Care: Skilled Communicable Disease: No Discharge Prognosis: Stable Lines: None Urinary Catheter: No Medications and DC Order Prescriptions: New metoprolol succinate 25 mg Tablet Extended Release 24 Hr 12.5 mg PO QAM Qty: 30 0RF alprazolam 1 mg tablet,disintegrating 1 mg PO TID PRN (Reason: anxiety) Qty: 10 0RF Continued mirtazapine 15 mg tablet 15 mg PO QPM Qty: 90 3RF levothyroxine 50 mcg tablet 50 mcg PO DAILY Qty: 90 3RF oxycodone 5 mg tablet 5 mg PO TID PRN (Reason: pain) Qty: 90 0RF clonazepam 0.5 mg tablet 0.5 mg PO BID aspirin 81 mg Tablet,Delayed Release (Dr/Ec) 81 mg PO DAILY Discharge Orders: Discharge Order (Routine); Ordered 09/17/23 Ordered By: Mandeep White/Other Patient Handouts: What Is Hospice?, Starting Hospice Admission Data Admit Date/Time: 09/14/23 02:35 Attending Provider: Mandeep Villarreal Admit Provider: Santa Sanchez Primary Care Provider: Duke Zelaya Other Providers: Santa Sanchez; Dorian Parker; Chandrakant Chun; Kaila Guerrero Other Interventions: Discharge Summary Assessment (RN) Last Done: 09/17/23 13:01 Coding Level of Care Code 96665 INP/OBS DISCH >30 MIN Diagnoses STEMI (ST elevation myocardial infarction) I21.3 Acute cholecystitis K81.0 Hypothyroidism (acquired) E03.9
== END 2023-09-17 13:26 | disposition hospice, inpatient (51) | DRG 281 ==
LOC: ED 21:21 → EDINP 09-14 02:35 → SUATTDRO 09-14 02:35 → 2S 09-14 03:10 → 3E 09-17 00:21